=== PATIENT | female | born 1950 | race Caucasian/White ===

== ENCOUNTER 2017-02-16 18:29 | Inpatient (IN) | payer MEDICARE, MEDICAID ==
[2017-02-16 18:32] VITALS: BMI 26.8
[2017-02-16] MEDS ORDERED: Sodium Chloride 0.9% 1,000 ML IV ONE (19:24)
[2017-02-16 19:48] LABS: BASO # 0.1 K/uL (0.0-0.2); BASO % 0.5 % (0.0-2.0); EOS # 0.1 K/uL (0.0-0.7); HEMATOCRIT 33.1 % (34.0-47.0); LYMPH # 1.3 K/uL (1.0-4.3); LYMPH % 11.5 % (20.0-40.0); MEAN CELL VOLUME 84.2 fL (81.0-99.0); MEAN CORPUSCULAR HEMOGLOBIN 27.8 pg (27.0-31.0); MEAN PLATELET VOLUME 7.6 fL (7.2-11.7); MONO % 8.8 % (0.0-10.0); RED CELL DISTRIBUTION WIDTH 18.4 % (11.5-14.5)
[2017-02-16 19:57] LABS: CHLORIDE 90 mmol/L (98-107)
[2017-02-16 19:58] LABS: POTASSIUM 4.1 mmol/L (3.6-5.2); SODIUM 130 mmol/L (132-148)
[2017-02-16 19:59] LABS: PHOSPHOROUS 3.2 mg/dL (2.5-4.5)
[2017-02-16 20:00] LABS: ALB/GLOB RATIO 0.9 (1.0-2.1); ALCOHOL SERUM < 10 mg/dl (0-10); ALKALINE PHOSPHATASE 104 U/L (38-126); ALT/SGPT 13 U/L (9-52); AST/SGOT 17 U/L (14-36); BILIRUBIN,TOTAL 0.6 mg/dL (0.2-1.3); BLOOD UREA NITROGEN 17 mg/dL (7-17); CALCIUM 10.3 mg/dl (8.6-10.4); CARBON DIOXIDE 24 mmol/L (22-30); GFR AFRICAN-AMERICAN > 60; GLUCOSE,RANDOM 230 mg/dL (65-105); TOTAL PROTEIN 7.6 g/dL (6.3-8.3)
[2017-02-16 20:01] LABS: MAGNESIUM 1.1 mg/dL (1.6-2.3)
[2017-02-16 21:23] LABS: RBC URINE 27 /hpf (0-3); URINE BACTERIA MANY (<OCC); URINE BILIRUBIN NEGATIVE (NEGATIVE); URINE BLOOD 2+ (NEGATIVE); URINE COLOR Yellow (YELLOW); URINE GLUCOSE (UA) 3+ mg/dL (Normal); URINE KETONE NEGATIVE (NEGATIVE); URINE LEUKOCYTE ESTERASE 2+ Leu/uL (Negative); URINE PROTEIN 1+ mg/dL (NEGATIVE); URINE UROBILINOGEN NORMAL mg/dL (0.2-1.0); WBC URINE 165 /hpf (0-5)
[2017-02-16] MEDS ORDERED: Ciprofloxacin 400mg/200ml D5W 200 ML IVPB STA (22:13)
--- NOTE | 2017-02-16 22:31 | C.PDOC ---
Time Seen by Provider: 02/16/17 19:15 Chief Complaint (Nursing): Altered Mental Status History Per: Patient, EMS History/Exam Limitations: Clinical Condition Onset Of Symptoms: Cannot Confirm Onset Current Symptoms Are (Timing): Worse Usual Baseline: Unknown Exacerbating Factor(s): Unknown Use Of Anticoag/Antiplatelets: Unknown Decreased Ability To: Stand, Walk Severity: Moderate Additional History Per: Family, Prior Records Associated Symptoms: Disoriented, Confused, Falling, Weakness Past Medical History Reviewed: Historical Data, Nursing Documentation, Vital Signs Vital Signs: Last Vital Signs Temp 99.1 F 02/16/17 22:16 Pulse 109 H 02/16/17 22:16 Resp 16 02/16/17 22:16 BP 172/87 H 02/16/17 22:16 Pulse Ox 96 02/16/17 22:16 - Medical History PMH: Arthritis, Diabetes (IDDM), HTN, Hypercholesterolemia, Malignancy (?), Chronic Kidney Disease Other PMH: Sarcoidosis? Family History: States: Unknown Family Hx - Social History Hx Alcohol Use: No - Immunization History Hx Tetanus Toxoid Vaccination: No Hx Influenza Vaccination: No Hx Pneumococcal Vaccination: No Review Of Systems Review Of Systems: ROS cannot be obtained secondary to pt's inabilty to answer questions. Physical Exam - Physical Exam Appears: Confused, Chronically Ill Skin: Warm, Dry Head: Atraumatic Eye(s): bilateral: PERRL, EOMI Oral Mucosa: Dry Neck: Normal ROM, No Midline Cervical Tenderness, No Step Off Deformity, Supple Cardiovascular: Rhythm Regular Respiratory: Normal Breath Sounds, No Accessory Muscle Use Gastrointestinal/Abdominal: Soft, No Tenderness Extremity: Normal ROM, No Deformity Neurological/Psych: No Normal Cognition, Inappropriate Response To Command, Other (No focal neurological deficit) Disoriented To: Place, Time Gait: Unable To Assess ED Course And Treatment - Laboratory Results Result Diagrams: 02/16/17 19:39 02/16/17 19:39 Lab Interpretation: Abnormal Interpretation Of Abnormal: UTI. Hypomagnesemia. Mild anemia. ECG: Interpreted By Me, Viewed By Me ECG Rhythm: Sinus Tachycardia, Nonspecific Changes Rate From EC O2 Sat by Pulse Oximetry: 96 Pulse Ox Interpretation: Normal - Radiology CXR: Interpreted by Me, Viewed By Me CXR Interpretation: Yes: No Acute Disease - CT Scan/US CT head Other Rad Studies (CT/US): Read By Radiologist, Radiology Report Reviewed CT/US Interpretation: No acute intracranial findings. Lytic calvarial lesions. Progress - Interventions Interventions:: Observation, Intravenous fluid - Medications Administered Intravenous: Other (Mg) - Data Reviewed Data Reviewed: Lab, Diagnostic imaging, EKG, Old records - Patient Status Patient status: Partially improved - Continuity of Care Discussed patient case with:: Patient, Family-HIPPA compliant, ED Nurse, On- call PMD-pt unassigned - Patient Plan Patient Plan: Admission Disposition Discussed With : Cammy Olvera Comment: She accepted pt on her service and gave admitting orders to the nurse. Doctor Will See Patient In The: Hospital Counseled Patient/Family Regarding: Studies Performed, Diagnosis - Disposition Disposition: HOSPITALIZED Disposition Time: 22:34 Condition: FAIR - Clinical Impression Clinical Impression: Mental status, decreased, Recurrent falls, Urinary tract infection
[2017-02-16] MEDS ORDERED: Ciprofloxacin 400mg/200ml D5W 200 ML IVPB ONE (22:37)
[2017-02-17] MEDS ORDERED: Oxycodone/Acetaminophen 5/325 mg Tab ONE (00:20)
[2017-02-17] MEDS: Oxycodone/Acetaminophen 5/325 mg Tab PO PRN (00:23)
--- NOTE | 2017-02-17 08:37 | RAD ---
PROCEDURE: CHEST RADIOGRAPH, 1 VIEW HISTORY: AMS COMPARISON: Comparison is made to the previous study dated 05/27/2016 FINDINGS: LUNGS: No evidence of new infiltrate or consolidation in the lungs PLEURA: No pneumothorax or pleural fluid seen. CARDIOVASCULAR: Normal. OSSEOUS STRUCTURES: No significant abnormalities. VISUALIZED UPPER ABDOMEN: Normal. OTHER FINDINGS: None. IMPRESSION: No active disease.
--- NOTE | 2017-02-17 08:51 | CT ---
PROCEDURE: CT HEAD WITHOUT CONTRAST. HISTORY: AMS COMPARISON: Comparison is made to the previous study 02/14/2016. TECHNIQUE: Axial computed tomography images were obtained through the head/brain without intravenous contrast. This CT exam was performed using one or more of the following dose reduction techniques: Automated exposure control, adjustment of the mA and/or kv according to patient size, and/or use of iterative reconstruction technique. Radiation dose: Total exam DLP = 852.6 mGy-cm. FINDINGS: HEMORRHAGE: No intracranial hemorrhage. BRAIN: No mass effect or edema. Moderate white matter changes are again seen suggestive of chronic microvascular ischemic disease. VENTRICLES: Unremarkable. No hydrocephalus. CALVARIUM: Again seen are multiple lytic bony lesion in the skull suspicious for osseous metastasis. PARANASAL SINUSES: Unremarkable as visualized. No significant inflammatory changes. MASTOID AIR CELLS: Unremarkable as visualized. No inflammatory changes. OTHER FINDINGS: None. IMPRESSION: No evidence of acute intracranial hemorrhage intracranial collection mass effect or midline shift. Moderate white matter chronic microvascular white matter ischemic disease. Multiple lytic lesions in the skull suggestive of osseous metastasis or multiple myeloma. Preliminary report was submitted by [facility].
[2017-02-17] MEDS: Pantoprazole 40 mg EC Tab PO SCH (09:57)
[2017-02-17] MEDS: MethylPREDNISolone 40 mg Vial IVP SCH (09:57)
[2017-02-17] MEDS ORDERED: METFORMIN PO SCH (10:00)
--- NOTE | 2017-02-17 11:11 | CP.PCM.HP ---
History of Present Illness - History of Present Illness History of Present Illness: pt brought to er for was found in the floore confused weekehtn Present on Admission - Present on Admission Any Indicators Present on Admission: No Review of Systems - Review of Systems Systems not reviewed;Unavailable: Acuity of Condition - Constitutional Constitutional: Anorexia, Weight Loss, Weakness - EENT Eyes: As Per HPI Ears: As Per HPI Nose/Mouth/Throat: As Per HPI - Breasts Breasts: As Per HPI - Cardiovascular Cardiovascular: As Per HPI - Respiratory Respiratory: As Per HPI - Gastrointestinal Gastrointestinal: As Per HPI - Genitourinary Genitourinary: As Per HPI - Reproductive: Female Reproductive:Female: As Per HPI - Menstruation Menstruation: Post Menopausal - Musculoskeletal Musculoskeletal: Abnormal Gait - Integumentary Integumentary: As Per HPI - Neurological Neurological: Confusion, Memory Loss, Weakness - Psychiatric Psychiatric: Behavioral Changes - Endocrine Endocrine: Polyuria Past Patient History - Past Medical History & Family History Past Medical History?: Yes - Past Social History Smoking Status: Never Smoked - CARDIAC Hx Hypercholesterolemia: Yes Hx Hypertension: Yes - PULMONARY Hx Respiratory Disorders: Yes (lung nodules) Other/Comment: sarcoidosis - NEUROLOGICAL Hx Neurological Disorder: Yes Hx Dizziness: Yes Other/Comment: Brain Cancer, not confirmed - HEENT Hx HEENT Problems: No - RENAL Hx Chronic Kidney Disease: Yes - ENDOCRINE/METABOLIC Hx Endocrine Disorders: Yes Hx Diabetes Mellitus Type 2: Yes - HEMATOLOGICAL/ONCOLOGICAL Hx Blood Disorders: Yes Hx Cancer: Yes Hx Metastesis: Yes - INTEGUMENTARY Hx Dermatological Problems: No - MUSCULOSKELETAL/RHEUMATOLOGICAL Hx Musculoskeletal Disorders: Yes Hx Falls: Yes (AT HOME) - GASTROINTESTINAL Hx Gastrointestinal Disorders: Yes Hx Gastroesophageal Reflux: Yes - GENITOURINARY/GYNECOLOGICAL Hx Genitourinary Disorders: No - PSYCHIATRIC Hx Psychophysiologic Disorder: No Hx Substance Use: No - SURGICAL HISTORY Hx Surgeries: Yes Hx Hysterectomy: Yes (bilat oophorectomy) - ANESTHESIA Hx Anesthesia: Yes Hx Anesthesia Reactions: Yes (palpitations) Hx Malignant Hyperthermia: No Has any member of the family had a problem w/ anesthesia?: No Meds Allergies/Adverse Reactions: Allergies Allergy/AdvReac Type Severity Reaction Status Date / Time No Known Allergies Allergy Verified 02/16/17 18:31 Physical Exam - Constitutional Appears: Non-toxic - Head Exam Head Exam: NORMAL INSPECTION - Eye Exam Eye Exam: Normal appearance Pupil Exam: NORMAL ACCOMODATION - ENT Exam ENT Exam: Mucous Membranes Moist - Neck Exam Neck exam: Positive for: Full Rom - Respiratory Exam Respiratory Exam: NORMAL BREATHING PATTERN - Cardiovascular Exam Cardiovascular Exam: REGULAR RHYTHM - GI/Abdominal Exam GI & Abdominal Exam: Normal Bowel Sounds - Rectal Exam Rectal Exam: NORMAL INSPECTION - Exam Exam: NORMAL INSPECTION - Extremities Exam Extremities exam: Positive for: normal inspection - Back Exam Back exam: NORMAL INSPECTION - Neurological Exam Neurological exam: Abnormal Gait, Alert - Psychiatric Exam Psychiatric exam: Normal Affect - Skin Skin Exam: Normal Color Results - Vital Signs Recent Vital Signs: Last Vital Signs Temp 97.9 F 02/17/17 08:22 Pulse 111 H 02/17/17 08:22 Resp 20 02/17/17 08:22 BP 156/94 H 02/17/17 08:22 Pulse Ox 96 02/17/17 08:22 - Labs Result Diagrams: 02/16/17 19:39 02/16/17 19:39 Assessment & Plan - Assessment and Plan (Free Text) Assessment: ac altered mental status recurent falls generalised weekbess dm Plan: admit pt and as oer orders - Date & Time Date: 02/17/17 Time: 11:14
--- NOTE | 2017-02-17 14:14 | CP.PCM.CON ---
History of Present Illness - History of Present Illness History of Present Illness: Mrs. Parrish Amador is a 66-year-old woman with a past medical history significant for diabetes, dyslipidemia, vertigo and neuropathy who has been developing a progressive dementia over the last year. The patient's son provides the history since the patient is confused and unable to maintain a fully logical conversation. According to her son, the patient has been losing a significant amount of weight, has had decreased appetite and is becoming progressively more demented, confused and unable to care for herself. The majority of the decline has occurred over the past year. She has apparently had a work-up at an outside facility for this before, where she was admitted for two months without a clear diagnosis. Review of Systems - Review of Systems Systems not reviewed;Unavailable: Dementia, Altered Mental Status - Constitutional Constitutional: Frequent Falls, Lethargy, Weight Loss, Weakness - EENT Eyes: As Per HPI, Other. absent: Blind Spots, Blurred Vision, Change in Vision , Decreased Night Vision, Diplopia, Discharge, Dry Eye, Exophthalmos, Floaters, Irritation, Itchy Eyes, Loss of Peripheral Vision, Pain, Photophobia, Requires Corrective Lenses, Sees Flashes, Spots in Vision, Tunnel Vision, Other Visual Disturbances, Loss of Vision Ears: As Per HPI. absent: Decreased Hearing, Ear Discharge, Ear Pain, Tinnitus , Abnormal Hearing, Disequilibrium, Dizziness, Other Nose/Mouth/Throat: As Per HPI, Other. absent: Epistaxis, Nasal Congestion, Nasal Discharge, Nasal Obstruction, Nasal Trauma, Nose Pain, Post Nasal Drip, Sinus Pain, Sinus Pressure, Bleeding Gums, Change in Voice, Dental Pain, Dry Mouth, Dysphagia, Halitosis, Hoarsness, Lip Swelling, Mouth Lesions, Mouth Pain , Odynophagia, Sore Throat, Throat Swelling, Tongue Swelling, Facial Pain, Neck Pain, Neck Mass - Cardiovascular Cardiovascular: absent: Acrocyanosis, Chest Pain, Chest Pain at Rest, Chest Pain with Activity, Claudication, Diaphoresis, Dyspnea, Dyspnea on Exertion, Edema, Irregular Heart Rhythm, Pain Radiating to Arm/Neck/Jaw, Leg Edema, Leg Ulcers, Lightheadedness, Orthopnea, Palpitations, Paroxysmal Nocturnal Dyspnea, Pedal Edema, Radiating Pain, Rapid Heart Rate, Slow Heart Rate, Syncope - Respiratory Respiratory: Other. absent: Cough, Dyspnea, Hemoptysis, Dyspnea on Exertion, Wheezing, Snoring, Stridor, Pain on Inspiration, Chest Congestion, Excessive Mucous Production, Change in Mucous Color, Pain with Coughing - Neurological Neurological: As Per HPI Past Patient History - Past Medical History & Family History Past Medical History?: Yes - Past Social History Smoking Status: Never Smoked - CARDIAC Hx Hypercholesterolemia: Yes Hx Hypertension: Yes - PULMONARY Hx Respiratory Disorders: Yes (lung nodules) Other/Comment: sarcoidosis - NEUROLOGICAL Hx Neurological Disorder: Yes Hx Dizziness: Yes Other/Comment: Brain Cancer, not confirmed - HEENT Hx HEENT Problems: No - RENAL Hx Chronic Kidney Disease: Yes - ENDOCRINE/METABOLIC Hx Endocrine Disorders: Yes Hx Diabetes Mellitus Type 2: Yes - HEMATOLOGICAL/ONCOLOGICAL Hx Blood Disorders: Yes Hx Cancer: Yes Hx Metastesis: Yes - INTEGUMENTARY Hx Dermatological Problems: No - MUSCULOSKELETAL/RHEUMATOLOGICAL Hx Musculoskeletal Disorders: Yes Hx Falls: Yes (AT HOME) - GASTROINTESTINAL Hx Gastrointestinal Disorders: Yes Hx Gastroesophageal Reflux: Yes - GENITOURINARY/GYNECOLOGICAL Hx Genitourinary Disorders: No - PSYCHIATRIC Hx Psychophysiologic Disorder: No Hx Substance Use: No - SURGICAL HISTORY Hx Surgeries: Yes Hx Hysterectomy: Yes (bilat oophorectomy) - ANESTHESIA Hx Anesthesia: Yes Hx Anesthesia Reactions: Yes (palpitations) Hx Malignant Hyperthermia: No Has any member of the family had a problem w/ anesthesia?: No Meds Allergies/Adverse Reactions: Allergies Allergy/AdvReac Type Severity Reaction Status Date / Time No Known Allergies Allergy Verified 02/16/17 18:31 - Medications Medications: Current Medications Duloxetine HCl (Cymbalta) 60 mg PO DAILY [facility] Last Admin: 02/17/17 10:23 Dose: 60 mg Enoxaparin Sodium (Lovenox) 40 mg SC DAILY [facility] Gabapentin (Neurontin) 400 mg PO TID [facility] Last Admin: 02/17/17 10:21 Dose: 400 mg Home Med (Alendronate [Fosamax]) 70 mg PO QWK [facility] Home Med (Metformin [Glucophage]) 1 tab PO BID [facility] Last Admin: 02/17/17 11:57 Dose: Not Given Ibuprofen (Motrin Tab) 1 mg PO Q6H PRN PRN Reason: Pain, moderate (4-7) Losartan Potassium (Cozaar) 100 mg PO DAILY [facility] Last Admin: 02/17/17 09:57 Dose: 100 mg Meclizine HCl (Antivert) 25 mg PO TID PRN PRN Reason: Dizziness Methylprednisolone (Solu-Medrol) 40 mg IVP DAILY [facility] Last Admin: 02/17/17 09:57 Dose: 40 mg Oxycodone/Acetaminophen (Percocet 5/325 Mg Tab) 1 tab PO Q4 PRN PRN Reason: Pain, moderate (4-7) Stop: 02/19/17 23:44 Last Admin: 02/17/17 00:23 Dose: 1 tab Pantoprazole Sodium (Protonix Ec Tab) 40 mg PO DAILY [facility] Last Admin: 02/17/17 09:57 Dose: 40 mg Prednisone (Prednisone Tab) 1 mg PO QOD6 [facility] Rosuvastatin Calcium (Crestor) 10 mg PO HS [facility] Sitagliptin Phosphate (Januvia) 100 mg PO DAILY [facility] Last Admin: 02/17/17 10:10 Dose: 100 mg Sucralfate (Carafate Tab) 1 gm PO BID [facility] Last Admin: 02/17/17 09:57 Dose: 1 gm Physical Exam - Constitutional Appears: Well, Non-toxic, No Acute Distress, Confused - Head Exam Head Exam: ATRAUMATIC, NORMAL INSPECTION, NORMOCEPHALIC - Eye Exam Eye Exam: EOMI, Normal appearance, PERRL - Neck Exam Neck exam: Positive for: Normal Inspection - Cardiovascular Exam Cardiovascular Exam: REGULAR RHYTHM, +S1, +S2 - Neurological Exam Neurological exam: Alert, CN II-XII Intact, Reflexes Normal Additional comments: Confused about date, time and place. Knows she is in a hospital, but does not know which city. She could not recall any of 3 objects and could not complete subtraction task. She moves all her extremities normally to command. No sensory deficits noted. Gait was deferred due to difficulty with communication. Results - Vital Signs Recent Vital Signs: Last Vital Signs Temp 97.9 F 02/17/17 08:22 Pulse 111 H 02/17/17 08:22 Resp 20 02/17/17 08:22 BP 156/94 H 02/17/17 08:22 Pulse Ox 96 02/17/17 08:22 - Labs Result Diagrams: 02/16/17 19:39 02/16/17 19:39 Labs: Laboratory Results - last 24 hr 02/17/17 12:21 POC Glucose (mg/dL) 381 H - Imaging and Cardiology CT scan - head Status: Image reviewed by me, Report reviewed by me (Chronic diffuse small vessel disease. Multiple lytic lesions in the july areas suggestive of metastatic disease, or multiple myeloma.) Assessment & Plan (1) Mental status, decreased Assessment and Plan: Based on the history, labs and imaging, the patient likely has an underlying malignancy causing either a paraneoplastic encephalopathy, or direct frontal lobe metastatic disease. This should be further evaluated with an MRI of the brain with and without contrast. Furthermore, records from the outside facility should be obtain to determine of a paraneoplastic panel was drawn so as to not repeat labs that have already been done. If we cannot obtain outside records, then we can send for the antibodies in serum and possibly CSF. Other factors contributing to the patient's altered mental status could be her current UTI, hyponatremia and other electrolyte abnormalities. 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 Thank you very much for this interesting consult. Status: Chronic Priority: High
[2017-02-17] MEDS: Enoxaparin 40 mg Syringe SC SCH (14:57)
[2017-02-17] MEDS: (Novolin R) Insulin Human Regular 100 units/ml vial SC SCH (21:35)
[2017-02-18] MEDS: (Novolin R) Insulin Human Regular 100 units/ml vial SC SCH ×4 (08:52→22:05)
[2017-02-18] MEDS: Oxycodone/Acetaminophen 5/325 mg Tab PO PRN (11:23)
[2017-02-18] MEDS: Enoxaparin 40 mg Syringe SC SCH (11:26)
[2017-02-18] MEDS: MethylPREDNISolone 40 mg Vial IVP SCH (11:26)
[2017-02-18] MEDS: Pantoprazole 40 mg EC Tab PO SCH (11:27)
[2017-02-18] MEDS: Ciprofloxacin 400mg/200ml D5W 200 ML IVPB SCH ×2 (11:36→21:07)
--- NOTE | 2017-02-18 16:32 | CP.PCM.PN ---
Subjective - Date & Time of Evaluation Date of Evaluation: 02/18/17 Time of Evaluation: 11:30 - Subjective Subjective: Mrs. Parrish Amador was seen and examined by me today at bedside. Her daughter was present and assisted by provided more history. According to the daughter, the patient has been diagnosed with sarcoidosis after biopsies of her lung nodules were performed. Furthermore, it was suspected based on the appearance of the july lesions that she may have multiple myeloma. However, bone marrow biopsy did not show this. She was started on steroids, but due to her uncontrolled diabetes, she is on only minimal doses. Recently, she was seen by a neurologist for declining mental function and confusion. 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 I reviewed the MRI and noticed that there are many areas of contrast enhancement in the calvarium and possibly anterior to the left temporal lobe region. I did not see any significant intraparenchymal contrast enhancement, but there is quite a bit of T2 hyperintensity implying chronic ischemic changes. There were no acute events overnight and the patient has not had any new complaints. The reason she was brought in to the hospital and not continued with outpatient neurology follow-up (she had an appointment tomorrow), was because she is not unable to walk normally. Objective - Vital Signs/Intake and Output Vital Signs (last 24 hours): Temp Pulse Resp BP Pulse Ox 97.5 F L 110 H 20 120/76 97 02/18/17 08:00 02/18/17 12:22 02/18/17 08:00 02/18/17 08:00 02/18/17 12:22 Intake and Output: 02/18/17 02/18/17 06:59 18:59 Intake Total 250 550 Balance 250 550 - Medications Medications: Current Medications Duloxetine HCl (Cymbalta) 60 mg PO DAILY [facility] Last Admin: 02/18/17 11:28 Dose: 60 mg Enoxaparin Sodium (Lovenox) 40 mg SC DAILY [facility] Last Admin: 02/18/17 11:26 Dose: 40 mg Gabapentin (Neurontin) 400 mg PO TID [facility] Last Admin: 02/18/17 14:53 Dose: 400 mg Home Med (Alendronate [Fosamax]) 70 mg PO QWK [facility] Ciprofloxacin (Cipro 400mg/200ml Dsw) 200 mls @ 133 mls/hr IVPB Q12 [facility] Last Admin: 02/18/17 11:36 Dose: 133 mls/hr Ibuprofen (Motrin Tab) 600 mg PO Q6H PRN PRN Reason: Pain, moderate (4-7) Insulin Human Regular (Novolin R) 0 unit SC ACHS YUE PRN Reason: Protocol Last Admin: 02/18/17 12:34 Dose: 8 unit Losartan Potassium (Cozaar) 100 mg PO DAILY [facility] Last Admin: 02/18/17 11:27 Dose: 100 mg Metformin HCl (Glucophage) 500 mg PO BID [facility] Last Admin: 02/18/17 11:28 Dose: 500 mg Methylprednisolone (Solu-Medrol) 40 mg IVP DAILY [facility] Last Admin: 02/18/17 11:26 Dose: 40 mg Oxycodone/Acetaminophen (Percocet 5/325 Mg Tab) 1 tab PO Q4 PRN PRN Reason: Pain, moderate (4-7) Stop: 02/19/17 23:44 Last Admin: 02/18/17 11:23 Dose: 1 tab Pantoprazole Sodium (Protonix Ec Tab) 40 mg PO DAILY [facility] Last Admin: 02/18/17 11:27 Dose: 40 mg Prednisone (Prednisone Tab) 5 mg PO QOD6 [facility] Rosuvastatin Calcium (Crestor) 10 mg PO HS [facility] Last Admin: 02/17/17 21:34 Dose: 10 mg Sitagliptin Phosphate (Januvia) 100 mg PO DAILY [facility] Last Admin: 02/18/17 11:26 Dose: 100 mg Sucralfate (Carafate Tab) 1 gm PO BID [facility] Last Admin: 02/18/17 11:27 Dose: 1 gm - Labs Labs: PT 11.5 SECONDS (9.7-12.2) 02/16/17 19:39 INR 1.0 02/16/17 19:39 APTT 35 SECONDS (21-34) H 02/16/17 19:39 - Constitutional Appears: Well - Eye Exam Eye Exam: EOMI, Normal appearance, PERRL Pupil Exam: NORMAL ACCOMODATION, PERRL - Respiratory Exam Respiratory Exam: Clear to Ausculation Bilateral, NORMAL BREATHING PATTERN - Cardiovascular Exam Cardiovascular Exam: REGULAR RHYTHM, +S1, +S2. absent: Murmur - Neurological Exam Neurological Exam: Abnormal Gait, Altered, CN II-XII Intact Neuro motor strength exam: Left Upper Extremity: 4, Right Upper Extremity: 4, Left Lower Extremity: 4, Right Lower Extremity: 4 Additional comments: Neurologically unchanged compared with yesterday's examination. 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 Neurosarcoidosis has no known cure. Spontaneous remission has been observed, but long-term therapy often is required. Treatment alleviates symptoms that are severe or progressive. Immunosuppression is the principal method of controlling the disease, and corticosteroids are the cornerstone of therapy. However, this patient's history of uncontrolled diabetes makes it difficult to give her high dose steroids. In some patients, low dose radiation may be of benefit. A radiation geoscience specialist is recommended in this case. Status: Chronic
--- NOTE | 2017-02-18 17:39 | CP.PCM.PN ---
Subjective - Date & Time of Evaluation Date of Evaluation: 02/18/17 Time of Evaluation: 17:36 - Subjective Subjective: c/o of abd [place] weeke unable to walk lost a lot of wt Objective - Vital Signs/Intake and Output Vital Signs (last 24 hours): Temp Pulse Resp BP Pulse Ox 97.4 F L 92 H 20 144/88 97 02/18/17 14:00 02/18/17 14:00 02/18/17 14:00 02/18/17 14:00 02/18/17 14:00 Intake and Output: 02/18/17 02/18/17 06:59 18:59 Intake Total 250 550 Balance 250 550 - Medications Medications: Current Medications Duloxetine HCl (Cymbalta) [address] [facility] Last Admin: 02/18/17 11:28 Dose: 60 mg Enoxaparin Sodium (Lovenox) [address] [facility] Last Admin: 02/18/17 11:26 Dose: 40 mg Gabapentin (Neurontin) [address] [facility] Last Admin: 02/18/17 14:53 Dose: 400 mg Glipizide (Glucotrol) 2.[address] [facility] Home Med (Alendronate [Fosamax]) [address] [facility] Ciprofloxacin (Cipro 400mg/200ml Dsw) 200 mls @ 133 mls/hr IVPB Q12 [facility] Last Admin: 02/18/17 11:36 Dose: 133 mls/hr Ibuprofen (Motrin Tab) 600 mg PO Q6H PRN PRN Reason: Pain, moderate (4-7) Insulin Human Regular (Novolin R) [address] [facility] PRN Reason: Protocol Last Admin: 02/18/17 12:34 Dose: 8 unit Losartan Potassium (Cozaar) [address] [facility] Last Admin: 02/18/17 11:27 Dose: 100 mg Methylprednisolone (Solu-Medrol) [address] [facility] Last Admin: 02/18/17 11:26 Dose: 40 mg Oxycodone/Acetaminophen (Percocet 5/325 Mg Tab) 1 tab PO Q4 PRN PRN Reason: Pain, moderate (4-7) Stop: 02/19/17 23:44 Last Admin: 02/18/17 11:23 Dose: 1 tab Pantoprazole Sodium (Protonix Ec Tab) [address] [facility] Last Admin: 02/18/17 11:27 Dose: 40 mg Prednisone (Prednisone Tab) [address] [facility] Rosuvastatin Calcium (Crestor) [address] [facility] Last Admin: 02/17/17 21:34 Dose: 10 mg Sitagliptin Phosphate (Januvia) [address] [facility] Last Admin: 02/18/17 11:26 Dose: 100 mg Sucralfate (Carafate Tab) [address] [facility] Last Admin: 02/18/17 11:27 Dose: 1 gm - Labs Labs: PT 11.5 SECONDS (9.7-12.2) 02/16/17 19:39 INR 1.0 02/16/17 19:39 APTT 35 SECONDS (21-34) H 02/16/17 19:39 - Constitutional Appears: Non-toxic - Head Exam Head Exam: NORMAL INSPECTION - Eye Exam Eye Exam: Normal appearance Pupil Exam: NORMAL ACCOMODATION - ENT Exam ENT Exam: Mucous Membranes Moist - Respiratory Exam Respiratory Exam: NORMAL BREATHING PATTERN - GI/Abdominal Exam GI & Abdominal Exam: Tenderness - Rectal Exam Rectal Exam: NORMAL INSPECTION - Extremities Exam Extremities Exam: Normal Inspection - Back Exam Back Exam: NORMAL INSPECTION - Neurological Exam Neurological Exam: Abnormal Gait, Alert - Psychiatric Exam Psychiatric exam: Normal Affect - Skin Skin Exam: Normal Color Assessment and Plan - Assessment and Plan (Free Text) Assessment: weekness abd pain wt loss aneamia recurent falls Plan: as per orders
[2017-02-18] MEDS: GlipiZIDE 2.5 mg Tab PO SCH (18:07)
[2017-02-19 07:24] LABS: CHLORIDE 92 mmol/L (98-107); POTASSIUM 4.1 mmol/L (3.6-5.2); SODIUM 133 mmol/L (132-148)
[2017-02-19 07:25] LABS: BASO % 0.1 % (0.0-2.0); EOS % 0.1 % (0.0-4.0); HEMATOCRIT 32.4 % (34.0-47.0); LYMPH # 1.3 K/uL (1.0-4.3); MEAN CELL VOLUME 84.9 fL (81.0-99.0); MEAN CORPUSCULAR HEMOGLOBIN 28.4 pg (27.0-31.0); MEAN CORPUSCULAR HGB CONC 33.4 g/dL (33.0-37.0); MEAN PLATELET VOLUME 7.8 fL (7.2-11.7); MONO # 0.6 K/uL (0.0-0.8); RED CELL DISTRIBUTION WIDTH 17.6 % (11.5-14.5); WHITE BLOOD COUNT 10.8 K/uL (4.8-10.8)
[2017-02-19 07:27] LABS: BLOOD UREA NITROGEN 21 mg/dL (7-17); CARBON DIOXIDE 24 mmol/L (22-30); GFR AFRICAN-AMERICAN > 60; GLUCOSE,RANDOM 206 mg/dL (65-105)
[2017-02-19 07:28] LABS: CALCIUM 10.3 mg/dl (8.6-10.4)
[2017-02-19] MEDS: (Novolin R) Insulin Human Regular 100 units/ml vial SC SCH ×4 (09:01→22:26)
--- NOTE | 2017-02-19 10:20 | CP.PCM.PN ---
Subjective - Date & Time of Evaluation Date of Evaluation: 02/19/17 Time of Evaluation: 10:20 - Subjective Subjective: weeke Objective - Vital Signs/Intake and Output Vital Signs (last 24 hours): Temp Pulse Resp BP Pulse Ox 98.5 F 102 H 20 155/96 H 96 02/19/17 08:00 02/19/17 08:00 02/19/17 08:00 02/19/17 08:00 02/19/17 08:00 Intake and Output: 02/19/17 02/19/17 06:59 18:59 Intake Total 850 Balance 850 - Medications Medications: Current Medications Duloxetine HCl (Cymbalta) 60 mg PO DAILY [facility] Last Admin: 02/18/17 11:28 Dose: 60 mg Gabapentin (Neurontin) 400 mg PO TID [facility] Last Admin: 02/18/17 18:09 Dose: 400 mg Glipizide (Glucotrol) 2.5 mg PO BID [facility] Last Admin: 02/18/17 18:07 Dose: 2.5 mg Home Med (Alendronate [Fosamax]) 70 mg PO QWK [facility] Ciprofloxacin (Cipro 400mg/200ml Dsw) 200 mls @ 133 mls/hr IVPB Q12 [facility] Last Admin: 02/18/17 21:07 Dose: 133 mls/hr Ibuprofen (Motrin Tab) 600 mg PO Q6H PRN PRN Reason: Pain, moderate (4-7) Insulin Human Regular (Novolin R) 0 unit SC ACHS [facility] PRN Reason: Protocol Last Admin: 02/19/17 09:01 Dose: 3 unit Losartan Potassium (Cozaar) 100 mg PO DAILY [facility] Last Admin: 02/18/17 11:27 Dose: 100 mg Methylprednisolone (Solu-Medrol) 40 mg IVP DAILY [facility] Last Admin: 02/18/17 11:26 Dose: 40 mg Oxycodone/Acetaminophen (Percocet 5/325 Mg Tab) 1 tab PO Q4 PRN PRN Reason: Pain, moderate (4-7) Stop: 02/19/17 23:44 Last Admin: 02/18/17 11:23 Dose: 1 tab Pantoprazole Sodium (Protonix Ec Tab) 40 mg PO DAILY [facility] Last Admin: 02/18/17 11:27 Dose: 40 mg Prednisone (Prednisone Tab) 5 mg PO QOD6 [facility] Last Admin: 02/18/17 18:08 Dose: 5 mg Rosuvastatin Calcium (Crestor) 10 mg PO HS [facility] Last Admin: 02/18/17 21:07 Dose: 10 mg Sitagliptin Phosphate (Januvia) 100 mg PO DAILY [facility] Last Admin: 02/18/17 11:26 Dose: 100 mg Sucralfate (Carafate Tab) 1 gm PO BID [facility] Last Admin: 02/18/17 18:06 Dose: 1 gm - Labs Labs: 02/19/17 07:05 02/19/17 07:05 PT 11.5 SECONDS (9.7-12.2) 02/16/17 19:39 INR 1.0 02/16/17 19:39 APTT 35 SECONDS (21-34) H 02/16/17 19:39 - Constitutional Appears: Non-toxic - Head Exam Head Exam: NORMAL INSPECTION - Eye Exam Eye Exam: Normal appearance Pupil Exam: NORMAL ACCOMODATION - ENT Exam ENT Exam: Normal Exam - Neck Exam Neck Exam: Full ROM - Respiratory Exam Respiratory Exam: Decreased Breath Sounds, Rales - Cardiovascular Exam Cardiovascular Exam: REGULAR RHYTHM - GI/Abdominal Exam GI & Abdominal Exam: Normal Bowel Sounds - Rectal Exam Rectal Exam: NORMAL INSPECTION - Exam Exam: NORMAL INSPECTION - Extremities Exam Extremities Exam: Normal Inspection - Back Exam Back Exam: NORMAL INSPECTION - Neurological Exam Neurological Exam: Awake - Psychiatric Exam Psychiatric exam: Normal Affect - Skin Skin Exam: Normal Color Assessment and Plan - Assessment and Plan (Free Text) Assessment: s/p ecoli sepese uti ca with met generalised weekness Plan: d/c to [facility] before
[2017-02-19] MEDS: Pantoprazole 40 mg EC Tab PO SCH (10:58)
[2017-02-19] MEDS: GlipiZIDE 2.5 mg Tab PO SCH ×2 (10:58→17:44)
[2017-02-19] MEDS: Ciprofloxacin 400mg/200ml D5W 200 ML IVPB SCH ×2 (10:59→21:40)
[2017-02-19] MEDS: MethylPREDNISolone 40 mg Vial IVP SCH (10:59)
[2017-02-19] MEDS: Enoxaparin 40 mg Syringe SC SCH (11:00)
[2017-02-19] MEDS ORDERED: Iohexol 240 (50 ml) PO ONE (12:45)
[2017-02-19 14:51] LABS: CARCINOEMBRYONIC ANTIGEN 3.5 ng/mL (0-3.0)
[2017-02-19 16:06] LABS: FREE T4 1.35 ng/dL (0.78-2.19)
[2017-02-19 16:20] LABS: THYROID STIMULATING HORMONE 1.39 mIU/L (0.46-4.68)
--- NOTE | 2017-02-19 17:29 | CT ---
PROCEDURE: CT Abdomen and Pelvis without IV contrast. HISTORY: loss of wt unable to walk uti COMPARISON: CT of the chest, abdomen, and pelvis with IV contrast performed 02/16/16 TECHNIQUE: Contiguous axial images of the abdomen and pelvis. Oral contrast was administered. No IV contrast given. Coronal and Sagittal reformats generated and reviewed. This CT exam was performed using 1 or more of the falling dose reduction techniques: Automated exposure control, adjustment of the MAA and/or kV according to patient size, and/or use of iterative reconstruction technique Radiation dose: Total exam DLP = 520.76 mGy-cm. FINDINGS: There is limited evaluation of the solid organs without the administration of IV contrast. LOWER THORAX: Minimal bibasilar atelectasis. There is no visible pleural effusion or pneumothorax. Coronary artery calcifications. LIVER: Unremarkable unenhanced appearance. GALLBLADDER AND BILE DUCTS: Cholelithiasis. PANCREAS: Unremarkable unenhanced appearance. SPLEEN: Unremarkable unenhanced appearance. ADRENALS: Unremarkable unenhanced appearance. KIDNEYS AND URETERS: No hydronephrosis or obstructing renal calculus. BLADDER: Air within the urinary bladder; correlate clinically for recent instrumentation. Recommend correlation with urinalysis in order to assess for infection. Urinary bladder is distended. REPRODUCTIVE: Uterus is absent, compatible with hysterectomy. APPENDIX: The appendix appears within normal limits of caliber. No secondary signs of acute appendicitis. BOWEL: The stomach is nondistended. The bowel loops appear within normal limits of caliber without evidence of intestinal obstruction. PERITONEUM: No significant free fluid. Small foci of air identified adjacent to the urinary bladder within the left anterior pelvis. Question whether 1 or 2 of the foci of air reside within the urinary bladder wall, however the majority of air foci appear external to the urinary bladder. LYMPH NODES: Prominent troy hepatis and mesenteric (particularly near the pancreatic head/ uncinate process) lymph nodes. VASCULATURE: No aortic aneurysm. BONES: Extensive lytic osseous metastatic disease predominantly involving the thoracic and lumbar spine and pelvis of the several ribs are also likely involved. OTHER FINDINGS: None. IMPRESSION: Small foci of air identified adjacent to the urinary bladder within the left anterior pelvis. Question whether 1 or 2 of the foci of air reside within the urinary bladder wall raising concern for emphysematous cystitis, however the majority of air foci appear external to the urinary bladder. Correlate clinically for recent surgery. This would be an unusual location for air to reside in the setting of a perforated viscus. Correlate if patient's clinical status. If indicated, suggest 24 hour follow-up CT reimaging through the pelvis. Air within the urinary bladder; correlate clinically for recent instrumentation. Recommend correlation with urinalysis in order to assess for infection. Urinary bladder is distended. Prominent troy hepatis and mesenteric (particularly near the pancreatic head/ uncinate process) lymph nodes. Extensive osseous metastatic disease. Findings discussed with the patient's RN Sapna 02/19/17 5:04 p.m.
[2017-02-20 06:01] LABS: BASO % 0.4 % (0.0-2.0); EOS # 0.1 K/uL (0.0-0.7); EOS % 0.8 % (0.0-4.0); LYMPH # 1.8 K/uL (1.0-4.3); LYMPH % 18.9 % (20.0-40.0); MEAN CELL VOLUME 84.7 fL (81.0-99.0); MEAN CORPUSCULAR HEMOGLOBIN 28.1 pg (27.0-31.0); MEAN CORPUSCULAR HGB CONC 33.2 g/dL (33.0-37.0); MEAN PLATELET VOLUME 7.8 fL (7.2-11.7); MONO # 0.7 K/uL (0.0-0.8); MONO % 7.8 % (0.0-10.0); RED CELL DISTRIBUTION WIDTH 17.6 % (11.5-14.5); WHITE BLOOD COUNT 9.5 K/uL (4.8-10.8)
[2017-02-20 06:08] LABS: CHLORIDE 92 mmol/L (98-107); POTASSIUM 4.4 mmol/L (3.6-5.2); SODIUM 137 mmol/L (132-148)
[2017-02-20 06:11] LABS: BLOOD UREA NITROGEN 23 mg/dL (7-17); CALCIUM 9.6 mg/dl (8.6-10.4); CARBON DIOXIDE 29 mmol/L (22-30); GFR AFRICAN-AMERICAN > 60; GLUCOSE,RANDOM 172 mg/dL (65-105)
[2017-02-20] MEDS: (Novolin R) Insulin Human Regular 100 units/ml vial SC SCH ×4 (09:07→22:00)
[2017-02-20] MEDS: GlipiZIDE 2.5 mg Tab PO SCH ×2 (10:21→17:45)
[2017-02-20] MEDS: Pantoprazole 40 mg EC Tab PO SCH (10:21)
[2017-02-20] MEDS: MethylPREDNISolone 40 mg Vial IVP SCH (10:21)
[2017-02-20] MEDS: Ciprofloxacin 400mg/200ml D5W 200 ML IVPB SCH ×2 (10:25→22:00)
[2017-02-20] MEDS ORDERED: Propofol 10 mg/ml Inj (20 ML) ONE (11:52)
[2017-02-20] MEDS ORDERED: Lactated Ringer's 1,000 ML IV SCH (12:15)
--- NOTE | 2017-02-20 13:58 | CP.PCM.PN ---
Subjective - Date & Time of Evaluation Date of Evaluation: 02/20/17 Time of Evaluation: 13:55 - Subjective Subjective: feels ok doesnot c/o endoscopy don coloscopy in am Objective - Vital Signs/Intake and Output Vital Signs (last 24 hours): Temp Pulse Resp BP Pulse Ox 97 F L 87 14 129/78 100 02/20/17 12:47 02/20/17 12:47 02/20/17 12:47 02/20/17 12:47 02/20/17 12:47 Intake and Output: 02/20/17 02/20/17 06:59 18:59 Intake Total 500 130 Output Total 500 Balance 0 130 - Medications Medications: Current Medications Bisacodyl (Dulcolax) 10 mg PO ONCE ONE Stop: 02/20/17 17:01 Duloxetine HCl (Cymbalta) 60 mg PO DAILY [facility] Last Admin: 02/20/17 10:26 Dose: Not Given Gabapentin (Neurontin) 400 mg PO TID [facility] Last Admin: 02/20/17 10:21 Dose: Not Given Glipizide (Glucotrol) 2.5 mg PO BID [facility] Last Admin: 02/20/17 10:21 Dose: Not Given Ciprofloxacin (Cipro 400mg/200ml Dsw) 200 mls @ 133 mls/hr IVPB Q12 [facility] Last Admin: 02/20/17 10:25 Dose: 133 mls/hr Lactated Ringer's (Lactated Ringer's) 1,000 mls @ 100 mls/hr IV .Q10H [facility] Ibuprofen (Motrin Tab) 600 mg PO Q6H PRN PRN Reason: Pain, moderate (4-7) Insulin Human Regular (Novolin R) 0 unit SC ACHS [facility] PRN Reason: Protocol Last Admin: 02/20/17 12:05 Dose: Not Given Losartan Potassium (Cozaar) 100 mg PO DAILY [facility] Last Admin: 02/20/17 10:25 Dose: 100 mg Methylprednisolone (Solu-Medrol) 40 mg IVP DAILY [facility] Last Admin: 02/20/17 10:21 Dose: 40 mg Metoclopramide HCl (Reglan) 5 mg IVP ACHS [facility] Pantoprazole Sodium (Protonix Ec Tab) 40 mg PO DAILY [facility] Last Admin: 02/20/17 10:21 Dose: Not Given Polyethylene Glycol/Electrolytes (Golytely) 4,000 ml PO ONCE ONE Stop: 02/20/17 14:01 Prednisone (Prednisone Tab) 5 mg PO QOD6 [facility] Last Admin: 02/18/17 18:08 Dose: 5 mg Rosuvastatin Calcium (Crestor) 10 mg PO HS [facility] Last Admin: 02/19/17 22:26 Dose: 10 mg Sitagliptin Phosphate (Januvia) 100 mg PO DAILY [facility] Last Admin: 02/20/17 10:21 Dose: Not Given Sucralfate (Carafate Tab) 1 gm PO BID [facility] Last Admin: 02/20/17 10:26 Dose: Not Given - Labs Labs: 02/20/17 05:54 02/20/17 05:54 PT 11.5 SECONDS (9.7-12.2) 02/16/17 19:39 INR 1.0 02/16/17 19:39 APTT 35 SECONDS (21-34) H 02/16/17 19:39 - Constitutional Appears: Non-toxic - Head Exam Head Exam: NORMAL INSPECTION - Eye Exam Eye Exam: Normal appearance Pupil Exam: NORMAL ACCOMODATION - ENT Exam ENT Exam: Mucous Membranes Moist - Neck Exam Neck Exam: Full ROM - Respiratory Exam Respiratory Exam: NORMAL BREATHING PATTERN - Cardiovascular Exam Cardiovascular Exam: REGULAR RHYTHM - GI/Abdominal Exam GI & Abdominal Exam: Normal Bowel Sounds - Rectal Exam Rectal Exam: NORMAL INSPECTION - Exam Exam: NORMAL INSPECTION - Extremities Exam Extremities Exam: Normal Capillary Refill - Back Exam Back Exam: NORMAL INSPECTION - Neurological Exam Neurological Exam: Normal Gait - Psychiatric Exam Psychiatric exam: Normal Affect - Skin Skin Exam: Normal Color Assessment and Plan - Assessment and Plan (Free Text) Assessment: oesophigitis Plan: colonoscopy in am cont curent med
[2017-02-20] MEDS ORDERED: Peg-Electrolyte Oral Soln 4L (Golytely) PO ONE (14:00)
--- NOTE | 2017-02-20 16:50 | CARD ---
APPROVED REPORT EKG Measurement Heart [id number] <Conclusion> Normal sinus rhythm Moderate voltage criteria for LVH, may be normal variant Borderline ECG
[2017-02-20] MEDS ORDERED: Bisacodyl 5mg EC Tab PO ONE (17:00)
[2017-02-21] MEDS: (Novolin R) Insulin Human Regular 100 units/ml vial SC SCH ×4 (09:01→21:59)
[2017-02-21] MEDS: GlipiZIDE 2.5 mg Tab PO SCH ×2 (10:15→19:03)
[2017-02-21] MEDS: Pantoprazole 40 mg EC Tab PO SCH (10:16)
[2017-02-21] MEDS: MethylPREDNISolone 40 mg Vial IVP SCH (10:19)
[2017-02-21] MEDS: Ciprofloxacin 400mg/200ml D5W 200 ML IVPB SCH ×2 (10:20→21:12)
[2017-02-21] MEDS ORDERED: Propofol 10 mg/ml Inj (20 ML) ONE (11:56)
[2017-02-21] MEDS ORDERED: Lactated Ringer's 500 ML IV ONE ×2 (12:04)
--- NOTE | 2017-02-21 13:11 | CARD ---
APPROVED REPORT EKG Measurement Heart [id number] <Conclusion> Sinus tachycardia Minimal voltage criteria for LVH, may be normal variant Inferior infarct, age undetermined Abnormal ECG
[2017-02-21] MEDS ORDERED: Magnesium Citrate Oral SOL (300 ml) PO ONE (14:00)
[2017-02-21] MEDS: Sodium Chloride 0.9% 1,000 ML IV SCH (19:07)
--- NOTE | 2017-02-21 19:43 | CP.PCM.PN ---
Subjective - Date & Time of Evaluation Date of Evaluation: 02/21/17 Time of Evaluation: 19:41 - Subjective Subjective: COUID NOT FINISH COLONOSCOPY NEED MORE PREP BS 500 Objective - Vital Signs/Intake and Output Vital Signs (last 24 hours): Temp Pulse Resp BP Pulse Ox 98.4 F 78 20 170/98 H 96 02/21/17 16:00 02/21/17 16:00 02/21/17 16:00 02/21/17 16:00 02/21/17 16:00 Intake and Output: 02/21/17 02/22/17 18:59 06:59 Intake Total 240 Balance 240 - Medications Medications: Current Medications Duloxetine HCl (Cymbalta) 60 mg PO DAILY [facility] Last Admin: 02/21/17 10:15 Dose: Not Given Gabapentin (Neurontin) 400 mg PO TID [facility] Last Admin: 02/21/17 19:03 Dose: 400 mg Glipizide (Glucotrol) 5 mg PO TID [facility] Ciprofloxacin (Cipro 400mg/200ml Dsw) 200 mls @ 133 mls/hr IVPB Q12 [facility] Last Admin: 02/21/17 10:20 Dose: 133 mls/hr Sodium Chloride (Sodium Chloride 0.9%) 1,000 mls @ 80 mls/hr IV .[id number] [facility] Last Admin: 02/21/17 19:07 Dose: 80 mls/hr Ibuprofen (Motrin Tab) 600 mg PO Q6H PRN PRN Reason: Pain, moderate (4-7) Last Admin: 02/21/17 19:02 Dose: 600 mg Insulin Human Regular (Novolin R) [address] [facility] PRN Reason: Protocol Last Admin: 02/21/17 17:00 Dose: 1 unit Losartan Potassium (Cozaar) 100 mg PO DAILY [facility] Last Admin: 02/21/17 10:19 Dose: 100 mg Methylprednisolone (Solu-Medrol) 40 mg IVP DAILY [facility] Last Admin: 02/21/17 10:19 Dose: 40 mg Metoclopramide HCl (Reglan) 5 mg IVP ACHS [facility] Last Admin: 02/21/17 19:04 Dose: 5 mg Pantoprazole Sodium (Protonix Ec Tab) 40 mg PO DAILY [facility] Last Admin: 02/21/17 10:16 Dose: Not Given Prednisone (Prednisone Tab) 5 mg PO QOD6 [facility] Last Admin: 02/20/17 17:45 Dose: 5 mg Rosuvastatin Calcium (Crestor) 10 mg PO HS [facility] Last Admin: 02/20/17 22:00 Dose: Not Given Sitagliptin Phosphate (Januvia) 100 mg PO DAILY [facility] Last Admin: 02/21/17 10:15 Dose: Not Given Sucralfate (Carafate Tab) 1 gm PO BID [facility] Last Admin: 02/21/17 19:03 Dose: 1 gm - Labs Labs: 02/20/17 05:54 02/20/17 05:54 PT 11.5 SECONDS (9.7-12.2) 02/16/17 19:39 INR 1.0 02/16/17 19:39 APTT 35 SECONDS (21-34) H 02/16/17 19:39 - Constitutional Appears: Non-toxic - Head Exam Head Exam: NORMAL INSPECTION - Eye Exam Eye Exam: Normal appearance Pupil Exam: NORMAL ACCOMODATION - ENT Exam ENT Exam: Mucous Membranes Moist - Neck Exam Neck Exam: Normal Inspection - Respiratory Exam Respiratory Exam: NORMAL BREATHING PATTERN - Cardiovascular Exam Cardiovascular Exam: REGULAR RHYTHM - GI/Abdominal Exam GI & Abdominal Exam: Normal Bowel Sounds - Rectal Exam Rectal Exam: NORMAL INSPECTION - Extremities Exam Extremities Exam: Full ROM - Back Exam Back Exam: NORMAL INSPECTION - Neurological Exam Neurological Exam: Normal Gait - Psychiatric Exam Psychiatric exam: Normal Affect - Skin Skin Exam: Dry Assessment and Plan - Assessment and Plan (Free Text) Assessment: UNCONTROLED DM WT LOSS Plan: PER ORDERS
[2017-02-22 08:16] LABS: BASO % 0.3 % (0.0-2.0); EOS # 0.3 K/uL (0.0-0.7); EOS % 3.2 % (0.0-4.0); HEMATOCRIT 28.8 % (34.0-47.0); LYMPH # 1.8 K/uL (1.0-4.3); LYMPH % 22.4 % (20.0-40.0); MEAN CELL VOLUME 84.8 fL (81.0-99.0); MEAN CORPUSCULAR HEMOGLOBIN 28.2 pg (27.0-31.0); MEAN CORPUSCULAR HGB CONC 33.3 g/dL (33.0-37.0); MEAN PLATELET VOLUME 7.5 fL (7.2-11.7); MONO # 0.7 K/uL (0.0-0.8); MONO % 8.2 % (0.0-10.0); RED CELL DISTRIBUTION WIDTH 17.6 % (11.5-14.5); WHITE BLOOD COUNT 8.2 K/uL (4.8-10.8)
[2017-02-22 08:32] LABS: CHLORIDE 93 mmol/L (98-107); POTASSIUM 3.9 mmol/L (3.6-5.2); SODIUM 133 mmol/L (132-148)
[2017-02-22 08:35] LABS: CARBON DIOXIDE 29 mmol/L (22-30); GFR AFRICAN-AMERICAN > 60
[2017-02-22 08:36] LABS: BLOOD UREA NITROGEN 13 mg/dL (7-17); CALCIUM 8.5 mg/dl (8.6-10.4); GLUCOSE,RANDOM 92 mg/dL (65-105)
[2017-02-22] MEDS: (Novolin R) Insulin Human Regular 100 units/ml vial SC SCH ×3 (08:43→17:04)
[2017-02-22] MEDS ORDERED: Propofol 10 mg/ml Inj (20 ML) ONE (10:39)
[2017-02-22] MEDS ORDERED: Glucagon Recombinant 1 mg Inj ONE (10:47)
[2017-02-22] MEDS ORDERED: Lactated Ringer's 1,000 ML IV SCH (11:00)
[2017-02-22] MEDS: Ciprofloxacin 400mg/200ml D5W 200 ML IVPB SCH (11:01)
[2017-02-22] MEDS: MethylPREDNISolone 40 mg Vial IVP SCH (11:03)
[2017-02-22] MEDS: Pantoprazole 40 mg EC Tab PO SCH (11:03)
--- NOTE | 2017-02-22 11:17 | CP.PCM.PN ---
Subjective - Date & Time of Evaluation Date of Evaluation: 02/22/17 Time of Evaluation: 11:14 - Subjective Subjective: had colonoscpy today pt in no distress vss lung cleare [id number] abd soft l l no oeadeama will resume diet if tolerated my go home on laxative ass hemeroids int spastic colon constipation fecal impactionuti recurent falls my need rehab Objective - Vital Signs/Intake and Output Vital Signs (last 24 hours): Temp Pulse Resp BP Pulse Ox 97.7 F 78 20 142/72 98 02/22/17 10:33 02/22/17 10:33 02/22/17 10:33 02/22/17 10:33 02/22/17 10:33 Intake and Output: 02/22/17 02/22/17 06:59 18:59 Intake Total 2020 150 Output Total 500 Balance 1520 150 - Medications Medications: Current Medications Duloxetine HCl (Cymbalta) 60 mg PO DAILY [facility] Last Admin: 02/22/17 11:02 Dose: Not Given Gabapentin (Neurontin) 400 mg PO TID [facility] Last Admin: 02/22/17 11:03 Dose: Not Given Glipizide (Glucotrol) 5 mg PO TIDAC [facility] Last Admin: 02/22/17 08:43 Dose: Not Given Ciprofloxacin (Cipro 400mg/200ml Dsw) 200 mls @ 133 mls/hr IVPB Q12 [facility] Last Admin: 02/22/17 11:01 Dose: Not Given Sodium Chloride (Sodium Chloride 0.9%) 1,000 mls @ 80 mls/hr IV .[id number] [facility] Last Admin: 02/21/17 19:07 Dose: 80 mls/hr Lactated Ringer's (Lactated Ringer's) 1,000 mls @ 80 mls/hr IV .[id number] [facility] Ibuprofen (Motrin Tab) 600 mg PO Q6H PRN PRN Reason: Pain, moderate (4-7) Last Admin: 02/21/17 19:02 Dose: 600 mg Insulin Human Regular (Novolin R) 0 unit SC ACHS [facility] PRN Reason: Protocol Last Admin: 02/22/17 08:43 Dose: Not Given Losartan Potassium (Cozaar) 100 mg PO DAILY [facility] Last Admin: 02/22/17 11:01 Dose: Not Given Methylprednisolone (Solu-Medrol) 40 mg IVP DAILY [facility] Last Admin: 02/22/17 11:03 Dose: Not Given Metoclopramide HCl (Reglan) 5 mg IVP ACHS [facility] Last Admin: 02/22/17 08:00 Dose: 5 mg Pantoprazole Sodium (Protonix Ec Tab) 40 mg PO DAILY [facility] Last Admin: 02/22/17 11:03 Dose: Not Given Prednisone (Prednisone Tab) 5 mg PO QOD6 [facility] Last Admin: 02/20/17 17:45 Dose: 5 mg Rosuvastatin Calcium (Crestor) 10 mg PO HS [facility] Last Admin: 02/21/17 21:11 Dose: 10 mg Sitagliptin Phosphate (Januvia) 100 mg PO DAILY [facility] Last Admin: 02/22/17 11:02 Dose: Not Given Sucralfate (Carafate Tab) 1 gm PO BID [facility] Last Admin: 02/22/17 11:00 Dose: Not Given - Labs Labs: 02/22/17 07:59 02/22/17 07:59 PT 11.5 SECONDS (9.7-12.2) 02/16/17 19:39 INR 1.0 02/16/17 19:39 APTT 35 SECONDS (21-34) H 02/16/17 19:39
[2017-02-22] MEDS: Sodium Chloride 0.9% 1,000 ML IV SCH (12:19)
--- NOTE | 2017-02-22 15:15 | CP.PCM.PN ---
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 FUNK, PT CAN BE DISCHARGED TO [facility] TODAY Objective - Vital Signs/Intake and Output Vital Signs (last 24 hours): Temp Pulse Resp BP Pulse Ox 97.5 F L 68 13 132/64 100 02/22/17 11:00 02/22/17 11:30 02/22/17 11:30 02/22/17 11:30 02/22/17 11:30 Intake and Output: 02/22/17 02/22/17 06:59 18:59 Intake Total 2020 250 Output Total 500 Balance 1520 250 - Medications Medications: Current Medications Duloxetine HCl (Cymbalta) 60 mg PO DAILY [facility] Last Admin: 02/22/17 11:02 Dose: Not Given Gabapentin (Neurontin) 400 mg PO TID [facility] Last Admin: 02/22/17 14:49 Dose: 400 mg Glipizide (Glucotrol) 5 mg PO TIDAC [facility] Last Admin: 02/22/17 12:16 Dose: 5 mg Ciprofloxacin (Cipro 400mg/200ml Dsw) 200 mls @ 133 mls/hr IVPB Q12 [facility] Last Admin: 02/22/17 11:01 Dose: Not Given Sodium Chloride (Sodium Chloride 0.9%) 1,000 mls @ 80 mls/hr IV .[id number] [facility] Last Admin: 02/22/17 12:19 Dose: 80 mls/hr Lactated Ringer's (Lactated Ringer's) 1,000 mls @ 80 mls/hr IV .[id number] [facility] Ibuprofen (Motrin Tab) 600 mg PO Q6H PRN PRN Reason: Pain, moderate (4-7) Last Admin: 02/21/17 19:02 Dose: 600 mg Insulin Human Regular (Novolin R) 0 unit SC ACHS [facility] PRN Reason: Protocol Last Admin: 02/22/17 12:15 Dose: 4 unit Losartan Potassium (Cozaar) 100 mg PO DAILY [facility] Last Admin: 02/22/17 11:01 Dose: Not Given Methylprednisolone (Solu-Medrol) 40 mg IVP DAILY [facility] Last Admin: 02/22/17 11:03 Dose: Not Given Metoclopramide HCl (Reglan) 5 mg IVP ACHS [facility] Last Admin: 02/22/17 12:24 Dose: 5 mg Pantoprazole Sodium (Protonix Ec Tab) 40 mg PO DAILY [facility] Last Admin: 02/22/17 11:03 Dose: Not Given Prednisone (Prednisone Tab) 5 mg PO QOD6 [facility] Last Admin: 02/20/17 17:45 Dose: 5 mg Rosuvastatin Calcium (Crestor) 10 mg PO HS [facility] Last Admin: 02/21/17 21:11 Dose: 10 mg Sitagliptin Phosphate (Januvia) 100 mg PO DAILY [facility] Last Admin: 02/22/17 11:02 Dose: Not Given - Labs Labs: 02/22/17 07:59 02/22/17 07:59 PT 11.5 SECONDS (9.7-12.2) 02/16/17 19:39 INR 1.0 02/16/17 19:39 APTT 35 SECONDS (21-34) H 02/16/17 19:39
[2017-02-22 15:46] VITALS: BP 148/83; PULSE 90; RESP 20; TEMP 98.3; O2SAT 95
--- NOTE | 2017-02-23 08:18 | CON ---
DATE: 02/19/2017 DATE: 02/19/2017. From Dr. Guerda Delgado to Dr. Cammy Olvera. I was called for a GI consultation by the admitting MD. The patient is seen and fully examined on 02/19/2017 as requested by the admitting MD, as well as the medical staff on the floor. The entire chart is reviewed, including but not limited to the most recent lab and radiology study results, current a nd previous medication list, current and the previous medical events, allergies to medication list as well as all the available current and the previous medical record. HISTORY OF PRESENT ILLNESS: This is a 66-year-old female who was admitted to the hospital with a mac nge of mental status, generalized weakness and malaise, reported having excessive body weight loss re cently with generalized weakness and malaise, being disoriented and confused. No reported active ble eding but dyspepsia and some change of bowel movement habit recently. PAST MEDICAL HISTORY: Including but not limited to: 1. Diabetes mellitus. 2. Hyperlipidemia. 3. Hypertension. 4. Osteoarthritis. 5. Chronic renal disease. 6. Questionable sarcoidosis. FAMILY HISTORY: Unknown. SOCIAL HISTORY: No reported recent history of cigarette smoking or alcohol intake. ALLERGIES TO MEDICATION: Unclear. CURRENT MEDICATIONS: Medication lists were reviewed. LABORATORY DATA: After being admitted to the hospital, the patient was found to have leukocytosis of 11.0 with hemoglobin 10.9, hematocrit 33.1 with low sodium of 130, increased blood glucose level to 230 with lower albumin and total protein than before. PHYSICAL EXAMINATION: GENERAL: A 66-year-old female, appears to be mildly pale. VITAL SIGNS: Afebrile at the time she was seen by me, with ____ 100 respiratory rate 18-20, blood pr essure 164/84. HEENT: Showed pale, dry oral mucoid membrane. Nonicteric sclerae. LUNGS: Few scattered crepitation, decreased air entry at bases. HEART: Positive S1 and S2 with increased rate. ABDOMEN: Soft. EXTREMITIES: Without edema, clubbing or cyanosis. NEUROLOGIC: No clear evidence of reported new neurological deficit, sensory or motor. IMPRESSION: 1. Change of mental status of unclear etiology. 2. Anemia. Rule out gastrointestinal blood loss, upper versus lower versus upper gastrointestinal m alignancy. 3. Multiple past medical history including, but not limited to hypertension, hyperlipidemia, diabete s mellitus as well as osteoarthritis and questionable sarcoidosis. 4. Electrolyte imbalance with hyponatremia and reported malnutrition. SUGGESTION: 1. Agree with your plan. 2. Cancer markers. 3. Guaiac all the stool daily x 3. 4. Proton pump inhibitors. 5. Endoscopic evaluation of the GI tract when the patient is more stable clinically. Thank you for letting me participate in your patient's case management. Further recommendation to madiha haas. Guerda Delgado MD cc: [id number] TT: 02/23/2017 08:18:41 Confirmation # [id number] Dictation # [id number] jn
--- NOTE | 2017-03-13 06:55 | DS ---
The patient is a 66-year-old brought in to the Emergency Department because she has new altered menta l status. She has been having dementia, progressing in the last year. She was found really confused a nd disoriented. As per her son, she lost a lot of weight. She may have a history of sarcoidosis. On a dmission, she was crying, confused, and not talking. Could not get any history from her. She had abdo tomasa and pelvic CAT scan done which was nonspecific except for gallstones. Because of her significan t weight loss, we called Dr. Delgado for GI consultation. She did have endoscopy which showed some hiat us hernia and a little bit of gastritis. She also went for colonoscopy which showed mild spasm and co litis. The colonoscopy personal history was also internal hemorrhoids - left-sided colitis, spastic c olon, internal hemorrhoids ____. The patient was tolerating diet and she was improving. She was seen by neurology. She was feeling okay after the scope. There was no discomfort. She was on medications f or her diabetes; she was on glipizide, she was on gabapentin. She was started on Cipro because she di d have some urinary tract infection and for the colitis as well. She was also on insulin, losartan fo r her blood pressure, methylprednisolone for the colitis, Reglan and polyethylene glycol for the cons tipation. Her hemoglobin/hematocrit was 10.6/32. Her sugar was 172. So patient was improving and stab le, and was discharged to her son to be followed up by her previous MD. FINAL DIAGNOSES: Acute altered mental status, dementia, ____ disease of the brain, anemia, weight lo ss, depression, colitis, hemorrhoids and gastritis ____. Cammy Olvera MD cc: [id number] TT: 03/12/2017 13:04:25 rigoberto
== END 2017-02-22 17:25 | DRG 71 ==
LOC: C.ER 18:29 → C.9E 22:35 → C.3T 23:00
PROVIDERS: ADMIT Internal Medicine; ATTEND Internal Medicine
PROC: 0DB88ZX Excision of Small Intestine, Via Natural or Artificial Opening Endoscopic, Diagnostic (ICD-10-PCS; principal; 2017-02-20 11:58)
PROC: 0DBE8ZX Excision of Large Intestine, Via Natural or Artificial Opening Endoscopic, Diagnostic (ICD-10-PCS; 2017-02-21)
DX: G93.41 Metabolic encephalopathy (principal); N17.9 Acute kidney failure, unspecified; E46 Unspecified protein-calorie malnutrition; F03.90 Unspecified dementia, unspecified severity, without behavioral disturbance, psychotic disturbance, mood disturbance, and anxiety; N39.0 Urinary tract infection, site not specified; E87.1 Hypo-osmolality and hyponatremia; D64.9 Anemia, unspecified; I12.9 Hypertensive chronic kidney disease with stage 1 through stage 4 chronic kidney disease, or unspecified chronic kidney disease; M19.90 Unspecified osteoarthritis, unspecified site; E11.22 Type 2 diabetes mellitus with diabetic chronic kidney disease; E11.40 Type 2 diabetes mellitus with diabetic neuropathy, unspecified; E78.00 Pure hypercholesterolemia, unspecified; N18.9 Chronic kidney disease, unspecified; Z79.4 Long term (current) use of insulin; E78.5 Hyperlipidemia, unspecified; D86.9 Sarcoidosis, unspecified; K21.9 Gastro-esophageal reflux disease without esophagitis; Z91.81 History of falling; K58.9 Irritable bowel syndrome, unspecified; K20.8 Other esophagitis; K44.9 Diaphragmatic hernia without obstruction or gangrene; K64.4 Residual hemorrhoidal skin tags; K64.8 Other hemorrhoids; K29.70 Gastritis, unspecified, without bleeding

== ENCOUNTER 2017-05-17 15:14 | Emergency (ER) | payer MEDICARE, MEDICAID ==
[2017-05-17 15:35] VITALS: BMI 24.1
[2017-05-17] MEDS ORDERED: Sodium Chloride 0.9% 1,000 ML IV ONE (15:51)
--- NOTE | 2017-05-17 15:59 | C.PDOC ---
History Of Present Illness 67 y/o female presents to the ED with complaints of feeling dizzy for the past 3 months. Today patient slipped in the tub and hit the back of her head on the wall, no LOC. Pt states she is now more dizzy than before with occasional nausea. Pt's sister states she is talking slower than usual. Denies any other injuries. Patient has been evaluated for dizziness in the past, takes meclizine. Patient was seen by PMD 05/10 for urinary symptoms and treated, still taking macrobid. - HPI Time Seen by Provider: 05/17/17 15:43 Chief Complaint (Nursing): Dizziness/Lightheaded History Per: Patient History/Exam Limitations: no limitations Onset/Duration Of Symptoms: Hrs Associated Symptoms: Dizziness Recent travel outside of the [place]: No - Fall Fall:Prior To Injury: Slipped Past Medical History Reviewed: Historical Data, Nursing Documentation, Vital Signs Vital Signs: Last Vital Signs Temp 98.0 F 05/17/17 17:22 Pulse 85 05/17/17 17:22 Resp 17 05/17/17 17:22 BP 126/72 05/17/17 17:22 Pulse Ox 96 05/17/17 17:22 - Medical History PMH: Arthritis, Diabetes (IDDM), HTN, Hypercholesterolemia, Malignancy (?), Chronic Kidney Disease - [facility] Procedures EXCISION OF LARGE INTESTINE, ENDO, DIAGN (02/16/17) EXCISION OF SMALL INTESTINE, ENDO, DIAGN (02/16/17) Family History: States: Unknown Family Hx - Social History Hx Alcohol Use: No Hx Substance Use: No - Immunization History Hx Tetanus Toxoid Vaccination: No Hx Influenza Vaccination: No Hx Pneumococcal Vaccination: No Review Of Systems Constitutional: Negative for: Fever Eyes: Negative for: Vision Change Respiratory: Negative for: Shortness of Breath Gastrointestinal: Positive for: Nausea. Negative for: Vomiting, Abdominal Pain Neurological: Positive for: Dizziness. Negative for: Weakness, Numbness Physical Exam - Physical Exam Appears: Non-toxic, No Acute Distress Skin: Warm, Dry, No Rash Head: Atraumatic, Normacephalic, Tenderness (mild tenderness to posterior scalp) , No Swelling, No Abrasion, No Laceration, Other (no hematoma) Eye(s): bilateral: Normal Inspection (no nystagmus), PERRL, EOMI Nose: Normal Oral Mucosa: Moist Neck: Normal, Normal ROM, Supple Chest: Symmetrical Cardiovascular: Rhythm Regular, No Murmur Respiratory: Normal Breath Sounds, No Rales, No Rhonchi, No Wheezing Gastrointestinal/Abdominal: Normal Exam, Soft, No Tenderness Back: No Vertebral Tenderness Extremity: Bilateral: Atraumatic, Normal Color And Temperature, Normal ROM Neurological/Psych: Oriented x3, Normal Speech, Normal Cranial Nerves, Normal Motor (all extremities), Normal Sensation Gait: Steady ED Course And Treatment - Laboratory Results Result Diagrams: 05/17/17 16:03 05/17/17 16:38 Lab Interpretation: No Acute Changes ECG: Interpreted By Me, Viewed By Me ECG Rhythm: Sinus Rhythm Rate From EC (BPM) O2 Sat by Pulse Oximetry: 95 (room air) Pulse Ox Interpretation: Normal Medical Decision Making Medical Decision Making: Plan: * CT head * labs * IV fluids * Reglan Progress: CT shows no acute process. Patient remained alert and oriented in no acute distress. She reports dizziness improving. Neuro and vitals intact and stable. Discussed results with patient and family, HIPAA compliant. Patient and family feel comfortable going home and will be discharged. Instruct to follow up with PCP Disposition Counseled Patient/Family Regarding: Need For Followup, Rx Given - Disposition Referrals: Robert Villar MD [Medical Doctor] - Disposition: HOME/ ROUTINE Disposition Time: 17:14 Condition: STABLE Additional Instructions: Vaya a dewitt mdico o la clnica en 2-5 german sin falta, para mas evaluacin. [place] los medicamentos [place] indicado. Volver a la james de emergencia en cualquier momento si los sntomas persisten o empeoran. Prescriptions: Metoclopramide [Reglan] 1 tab PO TID PRN #25 tab PRN Reason: Nausea/Vomiting Instructions: Vertigo (ED) Print Language: YEMENI - POA Present On Arrival: None - Clinical Impression Clinical Impression: Dizziness, Closed head injury - PA / [employer] / Resident Statement MD/DO has reviewed & agrees with the documentation as recorded. - Scribe Statement The provider has reviewed the documentation as recorded by the Scribe Bishnu Bruner All medical record entries made by the Scribe were at my direction and personally dictated by me. I have reviewed the chart and agree that the record accurately reflects my personal performance of the history, physical exam, medical decision making, and the department course for this patient. I have also personally directed, reviewed, and agree with the discharge instructions and disposition.
[2017-05-17] MEDS ORDERED: Sodium Chloride 0.9% 1,000 ML ONE (16:04)
[2017-05-17] MEDS ORDERED: Sodium Chloride 0.9% 50 ML IV ONE (16:05)
[2017-05-17 16:06] LABS: BASO # 0.1 K/uL (0.0-0.2); BASO % 1.2 % (0.0-2.0); EOS # 0.2 K/uL (0.0-0.7); EOS % 4.2 % (0.0-4.0); HEMOGLOBIN 11.5 g/dL (11.0-16.0); LYMPH # 1.9 K/uL (1.0-4.3); LYMPH % 32.3 % (20.0-40.0); MEAN CORPUSCULAR HEMOGLOBIN 27.5 pg (27.0-31.0); MEAN CORPUSCULAR HGB CONC 32.8 g/dL (33.0-37.0); MEAN PLATELET VOLUME 7.9 fL (7.2-11.7); MONO # 0.8 K/uL (0.0-0.8); MONO % 13.1 % (0.0-10.0); NEUT # 2.9 K/uL (1.8-7.0); NEUT % 49.2 % (50.0-75.0); NRBC % 0.1 % (0.0-2.0); RBC 4.17 Mil/uL (3.80-5.20); RED CELL DISTRIBUTION WIDTH 13.9 % (11.5-14.5); WHITE BLOOD COUNT 5.9 K/uL (4.8-10.8)
--- NOTE | 2017-05-17 16:32 | CT ---
PROCEDURE: CT HEAD WITHOUT CONTRAST. HISTORY: dizzy x3 weeks, fell today hit head COMPARISON: 02/16/2017 TECHNIQUE: Axial computed tomography images were obtained through the head/brain without intravenous contrast. Radiation dose: Total exam DLP = 826.92 mGy-cm. This CT exam was performed using one or more of the following dose reduction techniques: Automated exposure control, adjustment of the mA and/or kV according to patient size, and/or use of iterative reconstruction technique. FINDINGS: HEMORRHAGE: No intracranial hemorrhage. BRAIN: No mass effect or edema. No significant atrophy. Mild periventricular white matter lucency with patchy deep and subcortical white matter lucency consistent with age-related microvascular ischemic change. No evidence of acute infarct. VENTRICLES: Unremarkable. No hydrocephalus. CALVARIUM: Multiple lytic lesions of varying size throughout the calvarium suspicious for metastatic disease. Consider also multiple myeloma. There is also a moderate-sized lytic lesion of the left clivus. Evaluation with magnetic resonance imaging is urged. There is a lytic lesion of the right posterior temporal bone. This involves the posterior inferior mastoid. There is a lytic lesion of the left inferior mastoid tip. There is a lytic lesion of the left greater sphenoid wing, laterally. Cannot rule out minimal epidural extension. Further evaluation with magnetic resonance imaging with gadolinium is advised. PARANASAL SINUSES: Unremarkable as visualized. No significant inflammatory changes. MASTOID AIR CELLS: Unremarkable as visualized. No inflammatory changes. OTHER FINDINGS: None. IMPRESSION: Chronic microvascular white matter ischemic change. No intracranial mass, hemorrhage or evidence of acute infarct. 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 Further evaluation with gadolinium enhanced magnetic resonance imaging is advised.
[2017-05-17 16:57] LABS: ALBUMIN 3.6 g/dL (3.5-5.0)
[2017-05-17 17:00] LABS: ALB/GLOB RATIO 0.8 (1.0-2.1)
[2017-05-17 17:23] VITALS: BP 126/72; PULSE 85; RESP 17; TEMP 98
[2017-05-19 07:42] VITALS: O2SAT 95
--- NOTE | 2017-05-20 14:06 | CARD ---
APPROVED REPORT EKG Measurement Heart [id number] <Conclusion> Normal sinus rhythm Normal ECG
== END 2017-05-17 17:31 | disposition home or self-care (01) ==
LOC: C.ER 15:14
DX: R42 Dizziness and giddiness (principal); S09.90XA Unspecified injury of head, initial encounter; W18.2XXA Fall in (into) shower or empty bathtub, initial encounter; Y93.E1 Activity, personal bathing and showering; I10 Essential (primary) hypertension; E22.9 Hyperfunction of pituitary gland, unspecified; E78.00 Pure hypercholesterolemia, unspecified; E11.9 Type 2 diabetes mellitus without complications
CPT/HCPCS: 70450; 80053; 82009; 85025; 96361; 96374; 99285; J2765; J7040

== ENCOUNTER 2017-05-30 00:58 | Inpatient (IN) | payer MEDICAID, MEDICARE ==
[2017-05-30 00:59] VITALS: BMI 24.1
[2017-05-30] MEDS ORDERED: Sodium Chloride 0.9% 1,000 ML IV ONE (01:22)
--- NOTE | 2017-05-30 01:26 | C.PDOC ---
History Of Present Illness Patient is a 67 y/o female, with PMHx of multiple myeloma, that is brought to the ED by family for evaluation of unsteady gait, and confusion at home for the last few days. Pt complains of mild headache. Otherwise, denies any nausea, vomiting, visual changes, dizziness, weakness, numbness, or any other associated symptoms at this time. Chief Complaint (Nursing): Altered Mental Status History Per: Family History/Exam Limitations: None Onset/Duration Of Symptoms: Days Current Symptoms Are (Timing): Still Present Recent travel outside of the [place]: No Additional History Per: Patient Associated Symptoms: Headache, Confused Past Medical History Reviewed: Historical Data, Nursing Documentation, Vital Signs Vital Signs: Last Vital Signs Temp 98.3 F 05/30/17 01:20 Pulse 88 05/30/17 01:20 Resp 18 05/30/17 01:20 BP 128/84 05/30/17 01:20 Pulse Ox 97 05/30/17 03:26 - Medical History PMH: Arthritis, Diabetes (IDDM), HTN, Hypercholesterolemia, Malignancy (?), Chronic Kidney Disease - [facility] Procedures EXCISION OF LARGE INTESTINE, ENDO, DIAGN (02/16/17) EXCISION OF SMALL INTESTINE, ENDO, DIAGN (02/16/17) Family History: States: Unknown Family Hx - Social History Hx Alcohol Use: No Hx Substance Use: No - Immunization History Hx Tetanus Toxoid Vaccination: No Hx Influenza Vaccination: No Hx Pneumococcal Vaccination: No Review Of Systems Except As Marked, All Systems Reviewed And Found Negative. Constitutional: Negative for: Fever, Chills Cardiovascular: Negative for: Chest Pain, Palpitations Respiratory: Negative for: Shortness of Breath Gastrointestinal: Negative for: Nausea, Vomiting, Abdominal Pain Skin: Negative for: Rash Neurological: Positive for: Confusion, Headache. Negative for: Weakness, Numbness, Dizziness Physical Exam - Physical Exam Appears: Non-toxic, No Acute Distress Skin: Normal Color, Warm, Dry Head: Atraumatic, Normacephalic Eye(s): bilateral: Normal Inspection Neck: Normal ROM, Supple Chest: Symmetrical Cardiovascular: Rhythm Regular, No Murmur Respiratory: Normal Breath Sounds, No Accessory Muscle Use, No Rales, No Rhonchi , No Wheezing Gastrointestinal/Abdominal: Soft, No Tenderness Extremity: Bilateral: Atraumatic, Normal ROM Neurological/Psych: Oriented x3 (alert, conscious), Normal Speech, Normal Cognition, No Other (no focal deficts) ED Course And Treatment - Laboratory Results Result Diagrams: 05/30/17 01:35 05/30/17 01:35 ECG Interpretation: Normal, No Acute Changes Interpretation Of ECG: NSR, normal tracings Rate From EC O2 Sat by Pulse Oximetry: 97 (on RA) Pulse Ox Interpretation: Normal - CT Scan/US Head CT Other Rad Studies (CT/US): Read By Radiologist, Radiology Report Reviewed CT/US Interpretation: FINDINGS: There is atrophy. There is chronic small vessel ischemic disease. There is no hemorrhage or edema. No significant fluid in the sinuses. multiple lytic lesions with possiblity of epidural extension. Again seen are numerous lytic lesions throughout the calvarium including lesions of the clivus,. sphenoid wings,mastoids concerning for metastatic disease or multiple myeloma. The lesions are. more prominent than prior study of January 2016 however please note that this is not the most recent. study. There is increased density in the extra-axial space adjacent to the lytic lesion in the lateral left. sphenoid wing raising the possibility of epidural extension as discussed in prior report that could be. better evaluated with contrast MRI if not already performed. Ideally, direct correlation with the images. would be performed to determine whether this represents a change. IMPRESSION: Numerous lytic lesions throughout the calvarium, a finding documented in multiple prior CT scans. Increased density in the extra-axial space adjacent to the lytic lesion in the lateral left sphenoid wing. raising the possibility of epidural extension as discussed in the prior report that could be better. evaluated with contrast MRI if not already performed. Ideally, direct correlation with the images would. be performed to determine whether this represents a change. Progress Note: Blood work, urinalysis, head CT, EKG ordered and reviewed. Patient was given IV fluids in the ER. NIHSS Stroke Scale - Date/Time Evaluation Performed Date Performed: 05/30/17 Time Performed: 01:29 When Was NIHSS Performed: Baseline - How Severe is the [place] Level of Consciousness: 0=Alert LOC to Questions: 0=Both comments correct LOC to commands: 0=Obeys both correctly Visual: 0=No visual loss Facial: 0=Normal Motor Arm - Left: 0=No drift Motor Arm - Right: 0=No drift Motor Leg - Left: 0=No drift Motor Leg - Right: 0=No drift Limb Ataxia: 0=Absent Sensory: 0=Normal Best Language: 0=No aphasia Dysarthia: 0=Normal articulation Extinction & Inattention (Neglect): 0=Normal, no object Severity Of Stroke: 0= No Stroke Disposition Discussed With : Cameron Gracia Jr. Doctor Will See Patient In The: Hospital Counseled Patient/Family Regarding: Diagnosis - Disposition Disposition: HOSPITALIZED Disposition Time: 03:20 Condition: STABLE - POA Present On Arrival: None, Blood Incompatibility - Clinical Impression Clinical Impression: Altered mental status, Renal insufficiency, mild, Multiple myeloma, Lytic lesion of bone on x-ray - Scribe Statement The provider has reviewed the documentation as recorded by the Scribe Marian Zimmerman All medical record entries made by the Phillibabelardo were at my direction and personally dictated by me. I have reviewed the chart and agree that the record accurately reflects my personal performance of the history, physical exam, medical decision making, and the department course for this patient. I have also personally directed, reviewed, and agree with the discharge instructions and disposition.
[2017-05-30 01:38] LABS: BASO # 0.1 K/uL (0.0-0.2); EOS # 0.4 K/uL (0.0-0.7); EOS % 6.3 % (0.0-4.0); HEMOGLOBIN 10.8 g/dL (11.0-16.0); LYMPH # 2.1 K/uL (1.0-4.3); LYMPH % 34.3 % (20.0-40.0); MEAN CELL VOLUME 84.5 fL (81.0-99.0); MEAN CORPUSCULAR HEMOGLOBIN 27.8 pg (27.0-31.0); MEAN CORPUSCULAR HGB CONC 32.9 g/dL (33.0-37.0); MEAN PLATELET VOLUME 7.7 fL (7.2-11.7); MONO # 0.9 K/uL (0.0-0.8); MONO % 14.2 % (0.0-10.0); NEUT # 2.7 K/uL (1.8-7.0); NEUT % 44.2 % (50.0-75.0); RBC 3.9 Mil/uL (3.80-5.20); RED CELL DISTRIBUTION WIDTH 13.8 % (11.5-14.5)
[2017-05-30 01:48] LABS: ALBUMIN 3.6 g/dL (3.5-5.0)
[2017-05-30 01:51] LABS: ALB/GLOB RATIO 0.9 (1.0-2.1)
[2017-05-30 01:52] LABS: CALCIUM 10.9 mg/dl (8.6-10.4)
--- NOTE | 2017-05-30 02:45 | CT ---
EXAM: CT Head Without Intravenous Contrast CLINICAL HISTORY: 67 years old, female; Pain; Headache; Patient HX: 6-30-17 TECHNIQUE: Axial computed tomography images of the head/brain without intravenous contrast. This CT exam was performed using one or more of the following dose reduction techniques: automated exposure control, adjustment of the mA and/or kV according to patient size, and/or use of iterative reconstruction technique. EXAM DATE/TIME: 05/30/2017 1:21 AM COMPARISON: CT - HEAD W/O CONTRAST 02/14/2016 5:21:15 PM FINDINGS: There is atrophy. There is chronic small vessel ischemic disease. There is no hemorrhage or edema. No significant fluid in the sinuses. Again seen are numerous lytic lesions throughout the calvarium including lesions of the clivus, sphenoid wings,mastoids concerning for metastatic disease or multiple myeloma. The lesions are more prominent than prior study of January 2016 however please note that this is not the most recent study. There is increased density in the extra-axial space adjacent to the lytic lesion in the lateral left sphenoid wing raising the possibility of epidural extension as discussed in prior report that could be better evaluated with contrast MRI if not already performed. Ideally, direct correlation with the images would be performed to determine whether this represents a change. IMPRESSION: Numerous lytic lesions throughout the calvarium, a finding documented in multiple prior CT scans. Increased density in the extra-axial space adjacent to the lytic lesion in the lateral left sphenoid wing raising the possibility of epidural extension as discussed in the prior report that could be better evaluated with contrast MRI if not already performed. Ideally, direct correlation with the images would be performed to determine whether this represents a change.
--- NOTE | 2017-05-30 03:40 | CP.PCM.HP ---
History of Present Illness - History of Present Illness History of Present Illness: Medicine Note for Dr. Gracia CC: AMS HPI: 67F with PMHx of Multiple Myeloma, Sarcoidosis?? DM, HTN, HLD, DM neuropathy, and dementia presents to the ED due to AMS. As per Daughter, patient has a history of falls, hallucinating, and AMS. She was seen in the ED several times for multiple falls. However, today the patient was unable to identify her daughter or granddaughter. Daughter is concerned her disease is progressing and so she brought her in. Patient reports denied any fever, chills , headache, sob, chest pain, abdominal pain, n/v/d/c, or urinary symptoms. PMHx: Multiple Myeloma, Sarcoidosis?? DM, HTN, HLD, DM neuropathy, and dementia PSHx: Hysterectomy and b/l oopherectomy for cysts Meds: As per JAN All: NKDA SHx: Denied x 3 FHx: Unremarkable Present on Admission - Present on Admission Any Indicators Present on Admission: No Past Patient History - Infectious Disease Hx of Infectious Diseases: None - Past Medical History & Family History Past Medical History?: Yes - Past Social History Smoking Status: Never Smoked - CARDIAC Hx Hypercholesterolemia: Yes Hx Hypertension: Yes - PULMONARY Hx Respiratory Disorders: Yes (lung nodules) Other/Comment: sarcoidosis - NEUROLOGICAL Other/Comment: Brain Cancer, not confirmed - HEENT Hx HEENT Problems: No - RENAL Hx Chronic Kidney Disease: Yes - ENDOCRINE/METABOLIC Hx Endocrine Disorders: Yes Hx Diabetes Mellitus Type 2: Yes - HEMATOLOGICAL/ONCOLOGICAL Hx Blood Disorders: Yes Hx Cancer: Yes Hx Metastesis: Yes - INTEGUMENTARY Hx Dermatological Problems: No - MUSCULOSKELETAL/RHEUMATOLOGICAL Hx Arthritis: Yes - GASTROINTESTINAL Hx Gastrointestinal Disorders: Yes Hx Gastroesophageal Reflux: Yes - GENITOURINARY/GYNECOLOGICAL Hx Genitourinary Disorders: No - PSYCHIATRIC Hx Substance Use: No - SURGICAL HISTORY Hx Surgeries: Yes Hx Hysterectomy: Yes (bilat oophorectomy) - ANESTHESIA Hx Anesthesia: Yes Hx Anesthesia Reactions: Yes (palpitations) Hx Malignant Hyperthermia: No Meds Allergies/Adverse Reactions: Allergies Allergy/AdvReac Type Severity Reaction Status Date / Time No Known Allergies Allergy Verified 05/30/17 01:20 Physical Exam - Constitutional Appears: No Acute Distress - Head Exam Head Exam: NORMAL INSPECTION, NORMOCEPHALIC - Eye Exam Eye Exam: EOMI, Normal appearance, PERRL Pupil Exam: NORMAL ACCOMODATION - ENT Exam ENT Exam: Mucous Membranes Dry - Respiratory Exam Respiratory Exam: Clear to Auscultation Bilateral, NORMAL BREATHING PATTERN. absent: Wheezes - Cardiovascular Exam Cardiovascular Exam: REGULAR RHYTHM, RRR - GI/Abdominal Exam GI & Abdominal Exam: Normal Bowel Sounds, Soft - Rectal Exam Rectal Exam: Deferred - Extremities Exam Extremities exam: Positive for: normal inspection, pedal pulses present. Negative for: pedal edema, tenderness - Neurological Exam Neurological exam: Alert, CN II-XII Intact, Oriented x3 - Psychiatric Exam Psychiatric exam: Normal Affect, Normal Mood - Skin Skin Exam: Dry, Intact, Normal Color, Warm Results - Vital Signs Recent Vital Signs: Last Vital Signs Temp 98.3 F 05/30/17 01:20 Pulse 88 05/30/17 01:20 Resp 18 05/30/17 01:20 BP 128/84 05/30/17 01:20 Pulse Ox 97 05/30/17 03:31 - Labs Result Diagrams: 05/30/17 01:35 05/30/17 01:35 Labs: Laboratory Results - last 24 hr 05/30/17 05/30/17 01:35 01:35 WBC 6.0 RBC 3.90 Hgb 10.8 L Hct 33.0 L MCV 84.5 MCH 27.8 MCHC 32.9 L RDW 13.8 Plt Count 222 MPV 7.7 Neut % (Auto) 44.2 L Lymph % (Auto) 34.3 Jenkins % (Auto) 14.2 H Eos % (Auto) 6.3 H Baso % (Auto) 1.0 Neut # 2.7 Lymph # 2.1 Jenkins # 0.9 H Eos # 0.4 Baso # 0.1 Sodium 137 Potassium 3.9 Chloride 102 Carbon Dioxide 23 Anion Gap 16 BUN 24 H Creatinine 1.8 H Est GFR ( Amer) 34 Est GFR (Non-Af Amer) 28 Random Glucose 103 Calcium 10.9 H Total Bilirubin 0.6 AST 18 ALT 27 Alkaline Phosphatase 105 Total Protein 7.5 Albumin 3.6 Globulin 4.0 H Albumin/Globulin Ratio 0.9 L Assessment & Plan - Assessment and Plan (Free Text) Assessment: 67F with PMHx of Multiple Myeloma, Sarcoidosis?? DM, HTN, HLD, DM neuropathy, and dementia presents to the ED due to AMS. Plan: AMS * HEAD CT (05/30/17): Numerous lytic lesions throughout the calvarium, a finding documented in multiple prior CT scans. Increased density in the extra-axial space adjacent to the lytic lesion in the lateral left sphenoid wing raising the possibility of epidural extension as discussed in the prior report that could be better evaluated with contrast MRI if not already performed. Ideally, direct correlation with the images would be performed to determine whether this represents a change. Renal Insuffiency * Baseline BUN/CRE: 13/1.1 * BUN/CRE on admission: 24/ 1.8 * NS @ 100cc/hr Multiple Myeloma * Bone Density Survey (2016): Multiple abnormal foci of increased uptake in the calvarium consistent with findings on recent plain film radiographs/CT scan head. No additional suspicious abnormalities * Brain MRI (2016): Numerous well-circumscribed calvarial lesions demonstrating increased signal on the diffusion-weighted sequence. Differential diagnosis includes metastases and multiple myeloma. No acute infarction, mass or mass effect. Mild to moderate white matter microvascular ischemic change. * Abdomen and Pelvis w/ PO contrast (02/2017): Small foci of air identified adjacent to the urinary bladder within the left anterior pelvis. Question whether 1 or 2 of the foci of air reside within the urinary bladder wall raising concern for emphysematous cystitis, however the majority of air foci appear external to the urinary bladder. Correlate clinically for recent surgery. This would be an unusual location for air to reside in the setting of a perforated viscus. Correlate if patient's clinical status. If indicated, suggest 24 hour follow-up CT reimaging through the pelvis. Air within the urinary bladder; correlate clinically for recent instrumentation. Recommend correlation with urinalysis in order to assess for infection. Urinary bladder is distended. Prominent troy hepatis and mesenteric (particularly near the pancreatic head/ uncinate process) lymph nodes.Extensive osseous metastatic disease. HTN * Resume home medication: Cozaar 50mg PO daily DM * Accuchecks * ISS-low * F/U HBGA1C HLD * Crestor 10mg PO QHS * F/U lipid panel Hx of Anemia * Monitor Prophylactic Measures * GI PPX: Protonix 40mg PO daily * DVT PPX: Lovenox 40mg SC daily, SCDs DW Teresita López DO, PGY-1
[2017-05-30] MEDS: Sodium Chloride 0.9% 1,000 ML IV SCH ×2 (04:46→17:33)
[2017-05-30 05:17] LABS: HDL CHOLESTEROL 29 mg/dL (30-70)
[2017-05-30 05:28] LABS: LDL CHOLESTEROL 92 mg/dL (0-129)
--- NOTE | 2017-05-30 08:03 | RAD ---
HISTORY: acute confusion COMPARISON: 02/16/2017 FINDINGS: LUNGS: No active pulmonary disease. PLEURA: No significant pleural effusion identified, no pneumothorax apparent. CARDIOVASCULAR: Possible mild left ventricular enlargement -unchanged appearance OSSEOUS STRUCTURES: Thoracic spondylosis VISUALIZED UPPER ABDOMEN: Normal. OTHER FINDINGS: None. IMPRESSION: No interval pathology
[2017-05-30 08:15] LABS: SQUAMOUS EPITHIAL < 1 /hpf (0-5); URINE BACTERIA RARE (<OCC); URINE BILIRUBIN NEGATIVE (NEGATIVE); URINE BLOOD 1+ (NEGATIVE); URINE CLARITY Hazy (Clear); URINE COLOR Yellow (YELLOW); URINE GLUCOSE (UA) NORMAL (Normal); URINE LEUKOCYTE ESTERASE 3+ Leu/uL (Negative); URINE NITRATE NEGATIVE (NEGATIVE); URINE PROTEIN NEGATIVE (NEGATIVE); URINE UROBILINOGEN NORMAL mg/dL (0.2-1.0)
[2017-05-30] MEDS: (Novolin R) Insulin Human Regular 100 units/ml vial SC SCH ×4 (08:43→22:02)
--- NOTE | 2017-05-30 09:35 | CP.PCM.PN ---
<Funmi Lozano - Last Filed: 05/30/17 18:22> Subjective - Date & Time of Evaluation Date of Evaluation: 05/30/17 Time of Evaluation: 07:20 - Subjective Subjective: PGY1- Medicine Note- Dr. Gracia's Service Patient was seen today sitting up comfortably at bedside in no acute distress. Patient is unsure of why she is in the hospital, but glad she is being taken care of. Able to move to commode to urinate; has not had a BM since admission. Patient denies headache, dizziness, change in vision, tinnitus, neck pain, back pain, chest pain, palpitations, SOB, abdominal pain, change in appetite, muscle weakness, fatigue, sensitivity to temperature changes. About 1.5 hours later code echo called on patient because she was very confused and trying to leave. Talked to patient who was not making sense and very confused. She was very agitated and did not want anyone to touch her. She was combative and trying to get out of the bed/ room. Haldol 5 mg was given which calmed her down some and made her less aggressive, but still very confused and wants to leave. Objective - Vital Signs/Intake and Output Vital Signs (last 24 hours): Temp Pulse Resp BP Pulse Ox 98.2 F 73 20 148/87 97 05/30/17 04:35 05/30/17 04:35 05/30/17 04:35 05/30/17 04:35 05/30/17 04:35 - Medications Medications: Current Medications Duloxetine HCl (Cymbalta) 60 mg PO DAILY [facility] Enoxaparin Sodium (Lovenox) 40 mg SC DAILY [facility] Ferrous Sulfate (Feosol) 325 mg PO DAILY [facility] Gabapentin (Neurontin) 400 mg PO TID [facility] Sodium Chloride (Sodium Chloride 0.9%) 1,000 mls @ 100 mls/hr IV .Q10H ONE Stop: 05/30/17 11:21 Last Admin: 05/30/17 05:15 Dose: Not Given Sodium Chloride (Sodium Chloride 0.9%) 1,000 mls @ 100 mls/hr IV .Q10H [facility] Last Admin: 05/30/17 04:46 Dose: 100 mls/hr Ceftriaxone Sodium 1 gm/ (Sodium Chloride) 100 mls @ 100 mls/hr IVPB DAILY [facility] Insulin Human Regular (Novolin R) 0 unit SC ACHS [facility] PRN Reason: Protocol Last Admin: 05/30/17 08:43 Dose: Not Given Losartan Potassium (Cozaar) 50 mg PO DAILY [facility] Ondansetron HCl (Zofran Inj) 4 mg IVP Q6 PRN PRN Reason: Nausea/Vomiting Pantoprazole Sodium (Protonix Ec Tab) 40 mg PO DAILY [facility] Rosuvastatin Calcium (Crestor) 10 mg PO HS [facility] - Constitutional Appears: Non-toxic, In Acute Distress, Agitated, Confused - Eye Exam Eye Exam: EOMI, Normal appearance, PERRL - ENT Exam ENT Exam: Mucous Membranes Moist, Normal Exam - Neck Exam Neck Exam: Full ROM, Normal Inspection. absent: Lymphadenopathy - Respiratory Exam Respiratory Exam: Clear to Ausculation Bilateral, NORMAL BREATHING PATTERN. absent: Rales, Rhonchi, Wheezes, Respiratory Distress, Stridor - Cardiovascular Exam Cardiovascular Exam: REGULAR RHYTHM, RRR. absent: Gallop, Rubs, Murmur - GI/Abdominal Exam GI & Abdominal Exam: Soft, Normal Bowel Sounds. absent: Tenderness - Extremities Exam Extremities Exam: Full ROM, Normal Inspection. absent: Pedal Edema - Back Exam Back Exam: NORMAL INSPECTION - Neurological Exam Neurological Exam: Alert, Altered, Awake. absent: Oriented x3 - Psychiatric Exam Psychiatric exam: Agitated, Anxious - Skin Skin Exam: Intact, Normal Color, Warm Assessment and Plan - Assessment and Plan (Free Text) Assessment: AMS * HEAD CT (05/30/17): Numerous lytic lesions throughout the calvarium, a finding documented in multiple prior CT scans. Increased density in the extra-axial space adjacent to the lytic lesion in the lateral left sphenoid wing raising the possibility of epidural extension as discussed in the prior report that could be better evaluated with contrast MRI if not already performed. Ideally, direct correlation with the images would be performed to determine whether this represents a change. * f/u RPR, HIV, TSH UTI * u/a: blood 1+, leukocyte esterase 3+, wbc 45, rbc 12 * ceftriaxone 1 gm daily started on 05/30 Renal Insuffiency * Baseline BUN/CRE: 13/1.1 * BUN/CRE on admission: 24/ 1.8 * NS @ 100cc/hr Multiple Myeloma * Heme/onc consulted, Dr. Fields, help appreciated * Bone Density Survey (2016): Multiple abnormal foci of increased uptake in the calvarium consistent with findings on recent plain film radiographs/CT scan head. No additional suspicious abnormalities * Brain MRI (2016): Numerous well-circumscribed calvarial lesions demonstrating increased signal on the diffusion-weighted sequence. Differential diagnosis includes metastases and multiple myeloma. No acute infarction, mass or mass effect. Mild to moderate white matter microvascular ischemic change. * Abdomen and Pelvis w/ PO contrast (02/2017): Small foci of air identified adjacent to the urinary bladder within the left anterior pelvis. Question whether 1 or 2 of the foci of air reside within the urinary bladder wall raising concern for emphysematous cystitis, however the majority of air foci appear external to the urinary bladder. Correlate clinically for recent surgery. This would be an unusual location for air to reside in the setting of a perforated viscus. Correlate if patient's clinical status. If indicated, suggest 24 hour follow-up CT reimaging through the pelvis. Air within the urinary bladder; correlate clinically for recent instrumentation. Recommend correlation with urinalysis in order to assess for infection. Urinary bladder is distended. Prominent troy hepatis and mesenteric (particularly near the pancreatic head/ uncinate process) lymph nodes.Extensive osseous metastatic disease. HTN * Resume home medication: Cozaar 50mg PO daily DM * Accuchecks * ISS-low * HBGA1C- 8.9 * gabepentin decreased to 300 po TID (renally adjusted) * CmC7p-8.9 HLD * Crestor 10mg PO QHS * Cholesterol 174, Triglycerides 295, LDL 92, HDL 29 Hx of Anemia * H/H : 10.8/33 * Monitor Prophylactic Measures * GI PPX: Protonix 40mg PO daily * DVT PPX: Lovenox 30mg SC daily (renally adjusted), SCDs <Cameron Gracia Jr. - Last Filed: 06/01/17 10:26> Objective - Vital Signs/Intake and Output Vital Signs (last 24 hours): Temp Pulse Resp BP Pulse Ox 97.3 F L 110 H 20 193/95 H 97 06/01/17 08:00 06/01/17 08:00 06/01/17 08:00 06/01/17 08:00 06/01/17 08:00 Intake and Output: 06/01/17 06/01/17 06:59 18:59 Intake Total 980 500 Balance 980 500 - Medications Medications: Current Medications Duloxetine HCl (Cymbalta) 60 mg PO DAILY [facility] Last Admin: 06/01/17 09:53 Dose: 60 mg Enoxaparin Sodium (Lovenox) 30 mg SC DAILY [facility] Last Admin: 06/01/17 09:54 Dose: 30 mg Ferrous Sulfate (Feosol) 325 mg PO DAILY [facility] Last Admin: 06/01/17 09:54 Dose: 325 mg Gabapentin (Neurontin) 300 mg PO TID [facility] Last Admin: 06/01/17 09:54 Dose: 300 mg Sodium Chloride (Sodium Chloride 0.9%) 1,000 mls @ 100 mls/hr IV .Q10H [facility] Last Admin: 06/01/17 06:34 Dose: Not Given Ceftriaxone Sodium 1 gm/ (Sodium Chloride) 100 mls @ 100 mls/hr IVPB DAILY [facility] Last Admin: 06/01/17 09:57 Dose: 100 mls/hr Insulin Human Regular (Novolin R) 0 unit SC ACHS [facility] PRN Reason: Protocol Last Admin: 06/01/17 09:58 Dose: 2 unit Losartan Potassium (Cozaar) 50 mg PO DAILY [facility] Last Admin: 06/01/17 09:53 Dose: 50 mg Ondansetron HCl (Zofran Inj) 4 mg IVP Q6 PRN PRN Reason: Nausea/Vomiting Pantoprazole Sodium (Protonix Ec Tab) 40 mg PO DAILY [facility] Last Admin: 06/01/17 09:54 Dose: 40 mg Risperidone (Risperdal Tab) 0.5 mg PO BID [facility] Last Admin: 06/01/17 09:54 Dose: 0.5 mg Rosuvastatin Calcium (Crestor) 10 mg PO HS [facility] Last Admin: 05/31/17 21:20 Dose: 10 mg - Labs Labs: 05/31/17 06:16 05/31/17 06:16 Attending/Attestation - Attestation I have personally seen and examined this patient.: Yes I have fully participated in the care of the patient.: Yes I have reviewed all pertinent clinical information, including history, physical exam and plan: Yes Notes (Text): 06/01/17 10:26 Agree with resident note and findings
[2017-05-30] MEDS: Pantoprazole 40 mg EC Tab PO SCH (09:38)
[2017-05-30] MEDS ORDERED: Enoxaparin 40 mg Syringe SC SCH (10:00)
[2017-05-30] MEDS ORDERED: Pantoprazole 40 mg EC Tab PO SCH (10:00)
--- NOTE | 2017-05-30 13:19 | CP.PCM.CON ---
History of Present Illness - History of Present Illness History of Present Illness: Palliative consult Requested by Kacey KAUR Reason : Goals of care discussion Patient is a 67 yo female admitted from home when family noticed increased confusion and unsteady gait for the last few days. per patient's daughter Julia Galvin, patient had a similar episode of confusion in January/2017. At that time patient was diagnosed with UTI and treated with antibiotics. Upon this admission, CT head was significant for increased lytic lesions since the last CT and MRI was recommended. Doctor Shauna called on case. . The UA showed large amount of WBCs and RBCs. Rocephin IV started. WBC 6.0., Hb 10.8, BUN 24, Security Alarm Installer 1.8. IV hydration on board PMH: UTI, multiple myeloma, DM, arthiris Soc. Hx: , lives with daughter Fam Hx: patient's daughter denies known medical Hx Review of Systems - Review of Systems All systems: reviewed and no additional remarkable complaints except Review of Systems: Patient is chemically restrained after being physically aggressive with care takers. Per nursing, patient has been with AMS since admission and needed close safety watch. All other systems reviewed and are negative. Past Patient History - Infectious Disease Hx of Infectious Diseases: None - Past Medical History & Family History Past Medical History?: Yes - Past Social History Smoking Status: Never Smoked - CARDIAC Hx Hypercholesterolemia: Yes Hx Hypertension: Yes - PULMONARY Hx Respiratory Disorders: Yes (lung nodules) Other/Comment: sarcoidosis - NEUROLOGICAL Other/Comment: Brain Cancer, not confirmed - HEENT Hx HEENT Problems: No - RENAL Hx Chronic Kidney Disease: Yes - ENDOCRINE/METABOLIC Hx Endocrine Disorders: Yes Hx Diabetes Mellitus Type 2: Yes - HEMATOLOGICAL/ONCOLOGICAL Hx Blood Disorders: Yes Hx Cancer: Yes Hx Metastesis: Yes - INTEGUMENTARY Hx Dermatological Problems: No - MUSCULOSKELETAL/RHEUMATOLOGICAL Hx Falls: Yes - GASTROINTESTINAL Hx Gastrointestinal Disorders: Yes Hx Gastroesophageal Reflux: Yes - GENITOURINARY/GYNECOLOGICAL Hx Genitourinary Disorders: No - PSYCHIATRIC Hx Substance Use: No - SURGICAL HISTORY Hx Surgeries: Yes Hx Hysterectomy: Yes (bilat oophorectomy) - ANESTHESIA Hx Anesthesia: Yes Hx Anesthesia Reactions: Yes (palpitations) Hx Malignant Hyperthermia: No Meds Allergies/Adverse Reactions: Allergies Allergy/AdvReac Type Severity Reaction Status Date / Time No Known Allergies Allergy Verified 05/30/17 01:20 - Medications Medications: Current Medications Duloxetine HCl (Cymbalta) 60 mg PO DAILY [facility] Last Admin: 05/30/17 09:38 Dose: 60 mg Enoxaparin Sodium (Lovenox) 30 mg SC DAILY [facility] Ferrous Sulfate (Feosol) 325 mg PO DAILY [facility] Last Admin: 05/30/17 09:38 Dose: 325 mg Gabapentin (Neurontin) 300 mg PO TID [facility] Last Admin: 05/30/17 13:03 Dose: Not Given Sodium Chloride (Sodium Chloride 0.9%) 1,000 mls @ 100 mls/hr IV .Q10H [facility] Last Admin: 05/30/17 04:46 Dose: 100 mls/hr Ceftriaxone Sodium 1 gm/ (Sodium Chloride) 100 mls @ 100 mls/hr IVPB DAILY [facility] Last Admin: 05/30/17 10:04 Dose: Not Given Insulin Human Regular (Novolin R) 0 unit SC ACHS [facility] PRN Reason: Protocol Last Admin: 05/30/17 13:02 Dose: Not Given Losartan Potassium (Cozaar) 50 mg PO DAILY [facility] Last Admin: 05/30/17 09:39 Dose: 50 mg Ondansetron HCl (Zofran Inj) 4 mg IVP Q6 PRN PRN Reason: Nausea/Vomiting Pantoprazole Sodium (Protonix Ec Tab) 40 mg PO DAILY [facility] Last Admin: 05/30/17 09:38 Dose: 40 mg Rosuvastatin Calcium (Crestor) 10 mg PO [facility] Physical Exam - Constitutional Appears: No Acute Distress - Head Exam Head Exam: ATRAUMATIC, NORMAL INSPECTION, NORMOCEPHALIC - Eye Exam Eye Exam: EOMI, Normal appearance, PERRL Pupil Exam: NORMAL ACCOMODATION, PERRL - ENT Exam ENT Exam: Mucous Membranes Moist, Normal Exam - Neck Exam Neck exam: Positive for: Normal Inspection - Respiratory Exam Respiratory Exam: Clear to Auscultation Bilateral, NORMAL BREATHING PATTERN - Cardiovascular Exam Cardiovascular Exam: REGULAR RHYTHM, +S1, +S2 - GI/Abdominal Exam GI & Abdominal Exam: Normal Bowel Sounds, Soft - Rectal Exam Rectal Exam: Deferred - Extremities Exam Extremities exam: Positive for: normal capillary refill, normal inspection, pedal pulses present - Back Exam Back exam: NORMAL INSPECTION - Neurological Exam Neurological exam: Alert, Altered - Psychiatric Exam Psychiatric exam: Flat Affect - Skin Skin Exam: Dry, Intact, Normal Color, Warm Results - Vital Signs Recent Vital Signs: Last Vital Signs Temp 98 F 05/30/17 10:00 Pulse 78 05/30/17 10:00 Resp 20 05/30/17 10:00 BP 144/85 05/30/17 10:00 Pulse Ox 97 05/30/17 10:00 - Labs Result Diagrams: 05/30/17 01:35 05/30/17 01:35 Labs: Laboratory Results - last 24 hr 05/30/17 05/30/17 05/30/17 04:07 05:11 07:24 POC Glucose (mg/dL) Hemoglobin A1c 8.9 H Triglycerides 295 H D Cholesterol 174 LDL Cholesterol Direct 92 HDL Cholesterol 29 L Vitamin B12 25-OH Vitamin D Total Urine Color Yellow Urine Clarity Hazy Urine pH 6.0 Ur Specific [place] 1.005 Urine Protein Negative Urine Glucose (UA) Normal Urine Ketones Negative Urine Blood 1+ H Urine Nitrate Negative Urine Bilirubin Negative Urine Urobilinogen Normal Ur Leukocyte Esterase 3+ H Urine WBC (Auto) 45 H Urine RBC (Auto) 12 H Ur Squamous Epith Cells < 1 Urine Bacteria Rare 05/30/17 05/30/17 05/30/17 11:11 11:36 11:36 POC Glucose (mg/dL) 224 H Hemoglobin A1c Triglycerides Cholesterol LDL Cholesterol Direct HDL Cholesterol Vitamin B12 211 L 25-OH Vitamin D Total 15.0 L Urine Color Urine Clarity Urine pH Ur Specific [place] Urine Protein Urine Glucose (UA) Urine Ketones Urine Blood Urine Nitrate Urine Bilirubin Urine Urobilinogen Ur Leukocyte Esterase Urine WBC (Auto) Urine RBC (Auto) Ur Squamous Epith Cells Urine Bacteria Assessment & Plan - Assessment and Plan (Free Text) Assessment: Palliative consult Code status Full Code, no advance directive on chart, PPS 10%. Patient examined in bed sleeping, arousable to voice and touch for short duration. Patient is altered and unable to to be interviewed. Physical exam reveals no significant deficits. Earlier this morning, patient become aggressive with care takers, and Tin Cardona was called. patient is not aware of her action. Goals of care discussion took place over the phone with patient's daughter Mrs. Galvin. Per daughter's statement, patient has become dependent of care for the last year. Patient could not be left alone at home and needed assistance with basic ADLs, including feedings. Daughter noticed increased tremor to upper extremities and unsteady gait. As per daughter, patient had very similar symptoms in January of this year when diagnosed with UTI, but more pronounced this time. The daughter realizes that she will not be able to take care of her mother at home any longer due to worsening condition. She is looking at LTC placement. Recently patient's Medicaid coverage was cancelled. The daughter is asking for assistance with reinstalling the Medicaid insurance. Code status discussed. Daughter is not aware of her mother's wishes for end of life care. She would want all aggressive measures to be applied to support her mother's life in case her condition worsens, including termite renewal inspector MV support. Impression * This is a chronically ill patient with new acute onset of AMS * Family notices steady decline in patient's condition and is considering placement at LTC facility * Medicaid assistance was recently cut for the patient and the daughter is asking for assistance with new application * Patient's wishes for the end of life care are not known . Patient's daughter is requesting all aggressive measures to support life including MV Suggestion * Full Code, apply all measures to support life * Safety watch * SS to assist patient's daughter with Medicaid application if appropriate Palliative care will continue to fallow up with patient and the family for the support.
[2017-05-31] MEDS: Sodium Chloride 0.9% 1,000 ML IV SCH ×4 (00:15→21:21)
[2017-05-31 06:24] LABS: BASO # 0.1 K/uL (0.0-0.2); BASO % 0.9 % (0.0-2.0); EOS # 0.3 K/uL (0.0-0.7); EOS % 5.4 % (0.0-4.0); HEMOGLOBIN 11.1 g/dL (11.0-16.0); LYMPH # 1.6 K/uL (1.0-4.3); LYMPH % 26.2 % (20.0-40.0); MEAN CELL VOLUME 83.9 fL (81.0-99.0); MEAN CORPUSCULAR HEMOGLOBIN 28.8 pg (27.0-31.0); MEAN CORPUSCULAR HGB CONC 34.3 g/dL (33.0-37.0); MEAN PLATELET VOLUME 7.3 fL (7.2-11.7); MONO # 0.7 K/uL (0.0-0.8); MONO % 12.7 % (0.0-10.0); NEUT # 3.2 K/uL (1.8-7.0); NEUT % 54.8 % (50.0-75.0); RBC 3.86 Mil/uL (3.80-5.20); RED CELL DISTRIBUTION WIDTH 13.4 % (11.5-14.5); WHITE BLOOD COUNT 5.9 K/uL (4.8-10.8)
[2017-05-31 06:36] LABS: ALB/GLOB RATIO 0.9 (1.0-2.1); ALBUMIN 3.5 g/dL (3.5-5.0); CALCIUM 10.2 mg/dl (8.6-10.4); MAGNESIUM 1.7 mg/dL (1.6-2.3)
--- NOTE | 2017-05-31 09:07 | CP.PCM.PN ---
<Funmi Lozano - Last Filed: 05/31/17 17:48> Subjective - Date & Time of Evaluation Date of Evaluation: 05/31/17 Time of Evaluation: 07:00 - Subjective Subjective: PGY1- Medicine Note- Dr. Gracia's Service Patient seen and examined laying comfortably at bedside in no acute distress. Patient confused, unable to identify place or time. Able to move to commode with assistance. Speaks in incomplete sentences. Becomes increasingly agitated when anyone other than daughter attempts to touch her. Patient denies headache, dizziness, chest pain, palpitations, SOB, abdominal pain, muscle weakness, fatigue, n/v/c/d. 1 hour later patient became extremely agitated. Patient was yelling and trying to get out of bed. Patient was spoken to to try to calm her down but she was very confused and did not want to be talked to or examined. Haldol 3 mg IM was given. Patient calmed down some after injection. Objective - Vital Signs/Intake and Output Vital Signs (last 24 hours): Temp Pulse Resp BP Pulse Ox 98.2 F 71 20 148/81 98 05/30/17 23:56 05/30/17 23:56 05/30/17 23:56 05/30/17 23:56 05/30/17 23:56 Intake and Output: 05/31/17 05/31/17 06:59 18:59 Intake Total 1920 Balance 1920 - Medications Medications: Current Medications Duloxetine HCl (Cymbalta) 60 mg PO DAILY [facility] Last Admin: 05/30/17 09:38 Dose: 60 mg Enoxaparin Sodium (Lovenox) 30 mg SC DAILY [facility] Ferrous Sulfate (Feosol) 325 mg PO DAILY [facility] Last Admin: 05/30/17 09:38 Dose: 325 mg Gabapentin (Neurontin) 300 mg PO TID [facility] Last Admin: 05/30/17 17:31 Dose: 300 mg Sodium Chloride (Sodium Chloride 0.9%) 1,000 mls @ 100 mls/hr IV .Q10H [facility] Last Admin: 05/31/17 04:30 Dose: 100 mls/hr Ceftriaxone Sodium 1 gm/ (Sodium Chloride) 100 mls @ 100 mls/hr IVPB DAILY [facility] Last Admin: 05/30/17 10:04 Dose: Not Given Insulin Human Regular (Novolin R) 0 unit SC ACHS [facility] PRN Reason: Protocol Last Admin: 05/30/17 22:02 Dose: Not Given Losartan Potassium (Cozaar) 50 mg PO DAILY [facility] Last Admin: 05/30/17 09:39 Dose: 50 mg Ondansetron HCl (Zofran Inj) 4 mg IVP Q6 PRN PRN Reason: Nausea/Vomiting Pantoprazole Sodium (Protonix Ec Tab) 40 mg PO DAILY [facility] Last Admin: 05/30/17 09:38 Dose: 40 mg Rosuvastatin Calcium (Crestor) 10 mg PO HS [facility] Last Admin: 05/30/17 22:01 Dose: 10 mg - Labs Labs: 05/31/17 06:16 05/31/17 06:16 - Constitutional Appears: Well, Non-toxic, Agitated, Confused - Eye Exam Eye Exam: EOMI, Normal appearance, PERRL - ENT Exam ENT Exam: Mucous Membranes Moist, Normal Exam - Neck Exam Neck Exam: Full ROM, Normal Inspection. absent: Lymphadenopathy - Respiratory Exam Respiratory Exam: Clear to Ausculation Bilateral, NORMAL BREATHING PATTERN. absent: Rales, Rhonchi, Wheezes, Respiratory Distress, Stridor - Cardiovascular Exam Cardiovascular Exam: REGULAR RHYTHM, RRR. absent: Gallop, Rubs, Murmur - GI/Abdominal Exam GI & Abdominal Exam: Soft, Normal Bowel Sounds. absent: Distended, Firm, Guarding, Rigid, Tenderness - Extremities Exam Extremities Exam: Full ROM. absent: Pedal Edema - Back Exam Back Exam: NORMAL INSPECTION - Neurological Exam Neurological Exam: Alert, Altered, Awake. absent: Oriented x3 - Psychiatric Exam Psychiatric exam: Agitated - Skin Skin Exam: Intact, Normal Color, Warm Assessment and Plan - Assessment and Plan (Free Text) Assessment: Assessment: AMS * HEAD CT (05/30/17): Numerous lytic lesions throughout the calvarium, a finding documented in multiple prior CT scans. Increased density in the extra-axial space adjacent to the lytic lesion in the lateral left sphenoid wing raising the possibility of epidural extension as discussed in the prior report that could be better evaluated with contrast MRI if not already performed. Ideally, direct correlation with the images would be performed to determine whether this represents a change. * f/u RPR * TSH:3.45, B12: 211, Vit D: 15, * HIV negative * Risperdal .5 mg po BID (started 05/31/17) UTI * u/a: blood 1+, leukocyte esterase 3+, wbc 45, rbc 12 * ceftriaxone 1 gm daily started on 05/30 Renal Insuffiency * Baseline BUN/CRE: 13/1.1 * BUN/CRE on admission: 24/ 1.8 * NS @ 100cc/hr Multiple Myeloma * Heme/onc consulted, Dr. Fields, help appreciated * Dr. Fields saw patient and will follow up outpatient * Bone Density Survey (2016): Multiple abnormal foci of increased uptake in the calvarium consistent with findings on recent plain film radiographs/CT scan head. No additional suspicious abnormalities * Brain MRI (2016): Numerous well-circumscribed calvarial lesions demonstrating increased signal on the diffusion-weighted sequence. Differential diagnosis includes metastases and multiple myeloma. No acute infarction, mass or mass effect. Mild to moderate white matter microvascular ischemic change. * Abdomen and Pelvis w/ PO contrast (02/2017): Small foci of air identified adjacent to the urinary bladder within the left anterior pelvis. Question whether 1 or 2 of the foci of air reside within the urinary bladder wall raising concern for emphysematous cystitis, however the majority of air foci appear external to the urinary bladder. Correlate clinically for recent surgery. This would be an unusual location for air to reside in the setting of a perforated viscus. Correlate if patient's clinical status. If indicated, suggest 24 hour follow-up CT reimaging through the pelvis. Air within the urinary bladder; correlate clinically for recent instrumentation. Recommend correlation with urinalysis in order to assess for infection. Urinary bladder is distended. Prominent troy hepatis and mesenteric (particularly near the pancreatic head/ uncinate process) lymph nodes.Extensive osseous metastatic disease. HTN * Resume home medication: Cozaar 50mg PO daily DM * Accuchecks * ISS-low * HBGA1C- 8.9 * gabepentin decreased to 300 po TID (renally adjusted) HLD * Crestor 10mg PO QHS * Cholesterol 174, Triglycerides 295, LDL 92, HDL 29 Hx of Anemia * H/H : 11.1/32.4 * Monitor Prophylactic Measures * GI PPX: Protonix 40mg PO daily * DVT PPX: Lovenox 30mg SC daily (renally adjusted), SCDs <Cameron Gracia Jr. - Last Filed: 06/01/17 10:29> Objective - Vital Signs/Intake and Output Vital Signs (last 24 hours): Temp Pulse Resp BP Pulse Ox 97.3 F L 110 H 20 193/95 H 97 06/01/17 08:00 06/01/17 08:00 06/01/17 08:00 06/01/17 08:00 06/01/17 08:00 Intake and Output: 06/01/17 06/01/17 06:59 18:59 Intake Total 980 500 Balance 980 500 - Medications Medications: Current Medications Duloxetine HCl (Cymbalta) 60 mg PO DAILY [facility] Last Admin: 06/01/17 09:53 Dose: 60 mg Enoxaparin Sodium (Lovenox) 30 mg SC DAILY [facility] Last Admin: 06/01/17 09:54 Dose: 30 mg Ferrous Sulfate (Feosol) 325 mg PO DAILY [facility] Last Admin: 06/01/17 09:54 Dose: 325 mg Gabapentin (Neurontin) 300 mg PO TID [facility] Last Admin: 06/01/17 09:54 Dose: 300 mg Sodium Chloride (Sodium Chloride 0.9%) 1,000 mls @ 100 mls/hr IV .Q10H [facility] Last Admin: 06/01/17 06:34 Dose: Not Given Ceftriaxone Sodium 1 gm/ (Sodium Chloride) 100 mls @ 100 mls/hr IVPB DAILY [facility] Last Admin: 06/01/17 09:57 Dose: 100 mls/hr Insulin Human Regular (Novolin R) 0 unit SC ACHS [facility] PRN Reason: Protocol Last Admin: 06/01/17 09:58 Dose: 2 unit Losartan Potassium (Cozaar) 50 mg PO DAILY [facility] Last Admin: 06/01/17 09:53 Dose: 50 mg Ondansetron HCl (Zofran Inj) 4 mg IVP Q6 PRN PRN Reason: Nausea/Vomiting Pantoprazole Sodium (Protonix Ec Tab) 40 mg PO DAILY [facility] Last Admin: 06/01/17 09:54 Dose: 40 mg Risperidone (Risperdal Tab) 0.5 mg PO BID [facility] Last Admin: 06/01/17 09:54 Dose: 0.5 mg Rosuvastatin Calcium (Crestor) 10 mg PO HS [facility] Last Admin: 05/31/17 21:20 Dose: 10 mg - Labs Labs: 05/31/17 06:16 05/31/17 06:16 Attending/Attestation - Attestation I have personally seen and examined this patient.: Yes I have fully participated in the care of the patient.: Yes I have reviewed all pertinent clinical information, including history, physical exam and plan: Yes Notes (Text): 06/01/17 10:28 Agree with resident note and findings
[2017-05-31] MEDS: Pantoprazole 40 mg EC Tab PO SCH (09:37)
[2017-05-31] MEDS: (Novolin R) Insulin Human Regular 100 units/ml vial SC SCH ×3 (09:38→17:47)
[2017-05-31] MEDS: Enoxaparin 30 mg Syringe SC SCH (09:38)
[2017-06-01] MEDS: Sodium Chloride 0.9% 1,000 ML IV SCH ×2 (03:00→06:34)
--- NOTE | 2017-06-01 08:06 | CP.PCM.PN ---
Subjective - Date & Time of Evaluation Date of Evaluation: 06/01/17 Time of Evaluation: 09:55 - Subjective Subjective: PGY 2 Note- Dr. Gracia's service Pt seen and examined bedside. Patient altered but oriented to person. She was able to converse and answer questions about how she was feeling however distractedly while moving her blankets about in bed. She denies chest pain, headaches or pain at this time. Patient's family friend stopped by earlier concerned that patient's speech was slower than the normal. Patient was re- examined and her speech was found to be consistent with earlier evaluation. All the while patient was able to answer questions asked as well. Objective - Vital Signs/Intake and Output Vital Signs (last 24 hours): Temp Pulse Resp BP Pulse Ox 97.4 F L 91 H 20 141/82 97 06/01/17 00:05 06/01/17 00:05 06/01/17 00:05 06/01/17 00:05 06/01/17 00:05 Intake and Output: 06/01/17 06/01/17 06:59 18:59 Intake Total 980 Balance 980 - Medications Medications: Current Medications Duloxetine HCl (Cymbalta) 60 mg PO DAILY [facility] Last Admin: 05/31/17 09:38 Dose: 60 mg Enoxaparin Sodium (Lovenox) 30 mg SC DAILY [facility] Last Admin: 05/31/17 09:38 Dose: 30 mg Ferrous Sulfate (Feosol) 325 mg PO DAILY [facility] Last Admin: 05/31/17 09:37 Dose: 325 mg Gabapentin (Neurontin) 300 mg PO TID [facility] Last Admin: 05/31/17 17:46 Dose: 300 mg Sodium Chloride (Sodium Chloride 0.9%) 1,000 mls @ 100 mls/hr IV .Q10H [facility] Last Admin: 06/01/17 06:34 Dose: Not Given Ceftriaxone Sodium 1 gm/ (Sodium Chloride) 100 mls @ 100 mls/hr IVPB DAILY [facility] Last Admin: 05/31/17 19:46 Dose: 100 mls/hr Insulin Human Regular (Novolin R) 0 unit SC ACHS [facility] PRN Reason: Protocol Last Admin: 05/31/17 17:47 Dose: Not Given Losartan Potassium (Cozaar) 50 mg PO DAILY [facility] Last Admin: 05/31/17 09:37 Dose: 50 mg Ondansetron HCl (Zofran Inj) 4 mg IVP Q6 PRN PRN Reason: Nausea/Vomiting Pantoprazole Sodium (Protonix Ec Tab) 40 mg PO DAILY [facility] Last Admin: 05/31/17 09:37 Dose: 40 mg Risperidone (Risperdal Tab) 0.5 mg PO BID [facility] Last Admin: 05/31/17 19:46 Dose: 0.5 mg Rosuvastatin Calcium (Crestor) 10 mg PO HS [facility] Last Admin: 05/31/17 21:20 Dose: 10 mg - Labs Labs: 05/31/17 06:16 05/31/17 06:16 - Constitutional Appears: Non-toxic, No Acute Distress, Confused - Head Exam Head Exam: ATRAUMATIC, NORMAL INSPECTION, NORMOCEPHALIC - Eye Exam Eye Exam: EOMI, Normal appearance, PERRL Pupil Exam: NORMAL ACCOMODATION - ENT Exam ENT Exam: Mucous Membranes Moist - Neck Exam Neck Exam: Full ROM - Respiratory Exam Respiratory Exam: NORMAL BREATHING PATTERN. absent: Wheezes - Cardiovascular Exam Cardiovascular Exam: +S1, +S2 - GI/Abdominal Exam GI & Abdominal Exam: Soft, Normal Bowel Sounds - Extremities Exam Extremities Exam: Full ROM - Back Exam Back Exam: Full ROM - Neurological Exam Neurological Exam: Altered, Awake. absent: Oriented x3 Neuro motor strength exam: Left Upper Extremity: 5, Right Upper Extremity: 5, Left Lower Extremity: 5, Right Lower Extremity: 5 - Psychiatric Exam Psychiatric exam: Flat Affect - Skin Skin Exam: Dry, Normal Color, Warm Assessment and Plan - Assessment and Plan (Free Text) Assessment: AMS * HEAD CT (05/30/17): Numerous lytic lesions throughout the calvarium, a finding documented in multiple prior CT scans. Increased density in the extra-axial space adjacent to the lytic lesion in the lateral left sphenoid wing raising the possibility of epidural extension as discussed in the prior report that could be better evaluated with contrast MRI if not already performed. Ideally, direct correlation with the images would be performed to determine whether this represents a change. * RPR Nonreactive * TSH:3.45, B12: 211, Vit D: 15, * HIV negative * Risperdal .5 mg po BID (started 05/31/17). Monitor behavior. * Rule out encephalopathic etiology- F/U PT/PTT, ammonia,CMP UTI * U/A: blood 1+, leukocyte esterase 3+, wbc 45, rbc 12 * ceftriaxone 1 gm daily started on 05/30 Renal Insufficiency * Baseline BUN/CRE: 13/1.1 * BUN/CRE on admission: 24/ 1.8 * NS @ 100cc/hr - discontinue due to elevated blood pressure Multiple Myeloma * Heme/onc consulted, Dr. Fields, help appreciated * Dr. Fields saw patient and will follow up outpatient * Bone Density Survey (2016): Multiple abnormal foci of increased uptake in the calvarium consistent with findings on recent plain film radiographs/CT scan head. No additional suspicious abnormalities * Brain MRI (2016): Numerous well-circumscribed calvarial lesions demonstrating increased signal on the diffusion-weighted sequence. Differential diagnosis includes metastases and multiple myeloma. No acute infarction, mass or mass effect. Mild to moderate white matter microvascular ischemic change. * Abdomen and Pelvis w/ PO contrast (02/2017): Small foci of air identified adjacent to the urinary bladder within the left anterior pelvis. Question whether 1 or 2 of the foci of air reside within the urinary bladder wall raising concern for emphysematous cystitis, however the majority of air foci appear external to the urinary bladder. Correlate clinically for recent surgery. This would be an unusual location for air to reside in the setting of a perforated viscus. Correlate if patient's clinical status. If indicated, suggest 24 hour follow-up CT reimaging through the pelvis. Air within the urinary bladder; correlate clinically for recent instrumentation. Recommend correlation with urinalysis in order to assess for infection. Urinary bladder is distended. Prominent troy hepatis and mesenteric (particularly near the pancreatic head/ uncinate process) lymph nodes.Extensive osseous metastatic disease. HTN * Resume home medication: Cozaar 50mg PO daily [facility] * Accuchecks * ISS-low * HBGA1C- 8.9 * gabapentin decreased to 300 po TID (renally adjusted) HLD * Crestor 10mg PO QHS * Cholesterol 174, Triglycerides 295, LDL 92, HDL 29 Hx of Anemia * H/H : Stable * Monitor Prophylactic Measures * GI PPX: Protonix 40mg PO daily * DVT PPX: Lovenox 30mg SC daily (renally adjusted), SCDs
[2017-06-01] MEDS: Pantoprazole 40 mg EC Tab PO SCH (09:54)
[2017-06-01] MEDS: Enoxaparin 30 mg Syringe SC SCH (09:54)
[2017-06-01] MEDS: (Novolin R) Insulin Human Regular 100 units/ml vial SC SCH ×5 (09:58→22:01)
[2017-06-01 11:19] LABS: BASO # 0.1 K/uL (0.0-0.2); BASO % 0.7 % (0.0-2.0); EOS # 0.1 K/uL (0.0-0.7); EOS % 1.3 % (0.0-4.0); HEMOGLOBIN 12.1 g/dL (11.0-16.0); LYMPH # 1.1 K/uL (1.0-4.3); LYMPH % 15.4 % (20.0-40.0); MEAN CELL VOLUME 83.9 fL (81.0-99.0); MEAN CORPUSCULAR HEMOGLOBIN 28.4 pg (27.0-31.0); MEAN CORPUSCULAR HGB CONC 33.8 g/dL (33.0-37.0); MEAN PLATELET VOLUME 7.6 fL (7.2-11.7); MONO # 0.7 K/uL (0.0-0.8); MONO % 9.5 % (0.0-10.0); NEUT # 5.4 K/uL (1.8-7.0); NEUT % 73.1 % (50.0-75.0); RBC 4.27 Mil/uL (3.80-5.20); WHITE BLOOD COUNT 7.4 K/uL (4.8-10.8)
[2017-06-01 11:42] LABS: ALBUMIN 3.5 g/dL (3.5-5.0)
[2017-06-01 11:45] LABS: ALB/GLOB RATIO 0.9 (1.0-2.1)
[2017-06-01 11:46] LABS: CALCIUM 10.7 mg/dl (8.6-10.4); MAGNESIUM 1.7 mg/dL (1.6-2.3)
[2017-06-02 07:12] LABS: BASO # 0.1 K/uL (0.0-0.2); EOS # 0.3 K/uL (0.0-0.7); EOS % 4.1 % (0.0-4.0); HEMOGLOBIN 11.3 g/dL (11.0-16.0); LYMPH # 2.1 K/uL (1.0-4.3); LYMPH % 33.2 % (20.0-40.0); MEAN CELL VOLUME 84.1 fL (81.0-99.0); MEAN CORPUSCULAR HEMOGLOBIN 28.4 pg (27.0-31.0); MEAN CORPUSCULAR HGB CONC 33.8 g/dL (33.0-37.0); MEAN PLATELET VOLUME 7.9 fL (7.2-11.7); MONO # 0.6 K/uL (0.0-0.8); MONO % 10.4 % (0.0-10.0); NEUT # 3.2 K/uL (1.8-7.0); NEUT % 51.3 % (50.0-75.0); NRBC % 0.1 % (0.0-2.0); RED CELL DISTRIBUTION WIDTH 13.7 % (11.5-14.5); WHITE BLOOD COUNT 6.3 K/uL (4.8-10.8)
[2017-06-02 07:16] LABS: INR 1.1; PROTHROMBIN TIME 11.9 SECONDS (9.7-12.2)
[2017-06-02 07:51] LABS: ALBUMIN 3.3 g/dL (3.5-5.0)
[2017-06-02 07:54] LABS: ALB/GLOB RATIO 0.9 (1.0-2.1)
[2017-06-02 07:55] LABS: CALCIUM 10.9 mg/dl (8.6-10.4); MAGNESIUM 1.9 mg/dL (1.6-2.3)
[2017-06-02] MEDS: (Novolin R) Insulin Human Regular 100 units/ml vial SC SCH ×4 (09:30→21:47)
[2017-06-02] MEDS: Enoxaparin 30 mg Syringe SC SCH (09:57)
[2017-06-02] MEDS: Pantoprazole 40 mg EC Tab PO SCH (09:57)
--- NOTE | 2017-06-02 12:12 | CARD ---
APPROVED REPORT EKG Measurement Heart [id number] <Conclusion> Normal sinus rhythm Normal ECG
--- NOTE | 2017-06-02 12:29 | CP.PCM.PN ---
Subjective - Date & Time of Evaluation Date of Evaluation: 06/02/17 Time of Evaluation: 09:55 - Subjective Subjective: PGY 2 Note- Dr. Gracia's service Pt seen and examined bedside. Patient oriented to person only. She could not tell me where she was nor the month we are in. She is not as distracted today as she was yesterday. She denies chest pain, headaches , abdominal pain, nausea , vomiting, or visual disturbances at this time. Objective - Vital Signs/Intake and Output Vital Signs (last 24 hours): Temp Pulse Resp BP Pulse Ox 98.4 F 88 20 149/89 95 06/02/17 08:58 06/02/17 08:58 06/02/17 08:58 06/02/17 08:58 06/02/17 08:58 Intake and Output: 06/02/17 06/02/17 06:59 18:59 Intake Total 100 Balance 100 - Medications Medications: Current Medications Duloxetine HCl (Cymbalta) 60 mg PO DAILY [facility] Last Admin: 06/02/17 09:57 Dose: 60 mg Enoxaparin Sodium (Lovenox) 30 mg SC DAILY [facility] Last Admin: 06/02/17 09:57 Dose: 30 mg Ferrous Sulfate (Feosol) 325 mg PO DAILY [facility] Last Admin: 06/02/17 10:10 Dose: 325 mg Gabapentin (Neurontin) 300 mg PO TID [facility] Last Admin: 06/02/17 09:57 Dose: 300 mg Ceftriaxone Sodium 1 gm/ (Sodium Chloride) 100 mls @ 100 mls/hr IVPB DAILY [facility] Last Admin: 06/02/17 09:58 Dose: 100 mls/hr Insulin Human Regular (Novolin R) 0 unit SC ACHS [facility] PRN Reason: Protocol Last Admin: 06/02/17 09:30 Dose: 5 unit Losartan Potassium (Cozaar) 50 mg PO DAILY [facility] Last Admin: 06/02/17 09:57 Dose: 50 mg Ondansetron HCl (Zofran Inj) 4 mg IVP Q6 PRN PRN Reason: Nausea/Vomiting Pantoprazole Sodium (Protonix Ec Tab) 40 mg PO DAILY [facility] Last Admin: 06/02/17 09:57 Dose: 40 mg Risperidone (Risperdal Tab) 0.5 mg PO BID [facility] Last Admin: 06/02/17 09:57 Dose: 0.5 mg Rosuvastatin Calcium (Crestor) 10 mg PO HS [facility] Last Admin: 06/01/17 21:21 Dose: 10 mg - Labs Labs: 06/02/17 07:00 06/02/17 07:00 PT 11.9 SECONDS (9.7-12.2) 06/02/17 07:00 INR 1.1 06/02/17 07:00 APTT 29 SECONDS (21-34) 06/02/17 07:00 - Constitutional Appears: Non-toxic, No Acute Distress - Head Exam Head Exam: ATRAUMATIC, NORMAL INSPECTION, NORMOCEPHALIC - Eye Exam Eye Exam: EOMI, Normal appearance, PERRL Pupil Exam: NORMAL ACCOMODATION, PERRL - ENT Exam ENT Exam: Mucous Membranes Moist - Neck Exam Neck Exam: Full ROM - Respiratory Exam Respiratory Exam: NORMAL BREATHING PATTERN. absent: Wheezes - Cardiovascular Exam Cardiovascular Exam: +S1, +S2 - GI/Abdominal Exam GI & Abdominal Exam: Soft, Normal Bowel Sounds - Extremities Exam Extremities Exam: Full ROM, Normal Capillary Refill - Back Exam Back Exam: Full ROM - Neurological Exam Neurological Exam: Alert, Awake, Oriented x3 - Psychiatric Exam Psychiatric exam: Normal Affect, Normal Mood - Skin Skin Exam: Dry, Intact, Normal Color, Warm Assessment and Plan - Assessment and Plan (Free Text) Assessment: AMS * HEAD CT (05/30/17): Numerous lytic lesions throughout the calvarium, a finding documented in multiple prior CT scans. Increased density in the extra-axial space adjacent to the lytic lesion in the lateral left sphenoid wing raising the possibility of epidural extension as discussed in the prior report that could be better evaluated with contrast MRI if not already performed. Ideally, direct correlation with the images would be performed to determine whether this represents a change. * RPR Nonreactive * TSH:3.45, B12: 211, Vit D: 15, * HIV negative * Risperdal .5 mg po BID (started 05/31/17). Monitor behavior. * Patient likely not encephalopathic etiology- PT/PTT, ammonia,CMP within normal limits. Her presentation may be due to worsening underlying dementia. UTI * U/A: blood 1+, leukocyte esterase 3+, wbc 45, rbc 12 * ceftriaxone 1 gm daily started on 05/30 Renal Insufficiency * Baseline BUN/CRE: 30/11.1 * BUN/CRE on admission: .8 * NS @ 100cc/hr - discontinue due to elevated blood pressure Multiple Myeloma * Heme/onc consulted, Dr. Fields, help appreciated * Dr. Fields saw patient and will follow up outpatient * Bone Density Survey (2016): Multiple abnormal foci of increased uptake in the calvarium consistent with findings on recent plain film radiographs/CT scan head. No additional suspicious abnormalities * Brain MRI (2016): Numerous well-circumscribed calvarial lesions demonstrating increased signal on the diffusion-weighted sequence. Differential diagnosis includes metastases and multiple myeloma. No acute infarction, mass or mass effect. Mild to moderate white matter microvascular ischemic change. * Abdomen and Pelvis w/ PO contrast (02/2017): Small foci of air identified adjacent to the urinary bladder within the left anterior pelvis. Question whether 1 or 2 of the foci of air reside within the urinary bladder wall raising concern for emphysematous cystitis, however the majority of air foci appear external to the urinary bladder. Correlate clinically for recent surgery. This would be an unusual location for air to reside in the setting of a perforated viscus. Correlate if patient's clinical status. If indicated, suggest 24 hour follow-up CT reimaging through the pelvis. Air within the urinary bladder; correlate clinically for recent instrumentation. Recommend correlation with urinalysis in order to assess for infection. Urinary bladder is distended. Prominent troy hepatis and mesenteric (particularly near the pancreatic head/ uncinate process) lymph nodes.Extensive osseous metastatic disease. HTN * Resume home medication: Cozaar 50mg PO daily DM * Accuchecks * ISS-low * HBGA1C- 8.9 * gabapentin decreased to 300 po TID (renally adjusted) HLD * Crestor 10mg PO QHS * Cholesterol 174, Triglycerides 295, LDL 92, HDL 29 Hx of Anemia * H/H : Stable * Monitor Prophylactic Measures * GI PPX: Protonix 40mg PO daily * DVT PPX: Lovenox 30mg SC daily (renally adjusted), SCDs * PT/OT- F/U recommendations
[2017-06-03 06:55] LABS: BASO % 0.8 % (0.0-2.0); EOS # 0.4 K/uL (0.0-0.7); EOS % 7.5 % (0.0-4.0); HEMOGLOBIN 11.1 g/dL (11.0-16.0); LYMPH # 1.7 K/uL (1.0-4.3); MEAN CELL VOLUME 83.6 fL (81.0-99.0); MEAN CORPUSCULAR HEMOGLOBIN 28.3 pg (27.0-31.0); MEAN CORPUSCULAR HGB CONC 33.9 g/dL (33.0-37.0); MEAN PLATELET VOLUME 7.8 fL (7.2-11.7); MONO # 0.6 K/uL (0.0-0.8); MONO % 12.8 % (0.0-10.0); NEUT # 2.1 K/uL (1.8-7.0); NEUT % 42.9 % (50.0-75.0); NRBC % 0.1 % (0.0-2.0); RBC 3.93 Mil/uL (3.80-5.20); RED CELL DISTRIBUTION WIDTH 13.7 % (11.5-14.5); WHITE BLOOD COUNT 4.8 K/uL (4.8-10.8)
[2017-06-03 07:03] LABS: ALB/GLOB RATIO 0.9 (1.0-2.1); ALBUMIN 3.2 g/dL (3.5-5.0); CALCIUM 10.4 mg/dl (8.6-10.4); MAGNESIUM 1.8 mg/dL (1.6-2.3)
--- NOTE | 2017-06-03 07:17 | CP.PCM.PN ---
Subjective - Date & Time of Evaluation Date of Evaluation: 06/03/17 Time of Evaluation: 07:16 - Subjective Subjective: PGY-[address] Gracia Patient was seen and examined at bedside. Patient oriented to person only. Patient could not tell me where she was today or what year it currently was. Patient is in no acute distress. Patient reports that she is sleeping well and feeling okay. She cannot recall last bowel movement. Patient denies chest pain, palpitations, SOB, abdominal pain, nausea, vomiting, or constipation. Objective - Vital Signs/Intake and Output Vital Signs (last 24 hours): Temp Pulse Resp BP Pulse Ox 97.1 F L 81 16 133/69 98 06/02/17 23:25 06/02/17 23:25 06/02/17 23:25 06/02/17 23:25 06/02/17 23:25 Intake and Output: 06/03/17 06/03/17 06:59 18:59 Intake Total 300 Balance 300 - Medications Medications: Current Medications Duloxetine HCl (Cymbalta) 60 mg PO DAILY [facility] Last Admin: 06/02/17 09:57 Dose: 60 mg Enoxaparin Sodium (Lovenox) 30 mg SC DAILY [facility] Last Admin: 06/02/17 09:57 Dose: 30 mg Ferrous Sulfate (Feosol) 325 mg PO DAILY [facility] Last Admin: 06/02/17 10:10 Dose: 325 mg Gabapentin (Neurontin) 300 mg PO TID [facility] Last Admin: 06/02/17 18:05 Dose: 300 mg Ceftriaxone Sodium 1 gm/ (Sodium Chloride) 100 mls @ 100 mls/hr IVPB DAILY [facility] Last Admin: 06/02/17 09:58 Dose: 100 mls/hr Insulin Human Regular (Novolin R) 0 unit SC ACHS [facility] PRN Reason: Protocol Last Admin: 06/02/17 21:47 Dose: Not Given Losartan Potassium (Cozaar) 50 mg PO DAILY [facility] Last Admin: 06/02/17 09:57 Dose: 50 mg Ondansetron HCl (Zofran Inj) 4 mg IVP Q6 PRN PRN Reason: Nausea/Vomiting Pantoprazole Sodium (Protonix Ec Tab) 40 mg PO DAILY [facility] Last Admin: 06/02/17 09:57 Dose: 40 mg Risperidone (Risperdal Tab) 0.5 mg PO BID [facility] Last Admin: 06/02/17 18:05 Dose: 0.5 mg Rosuvastatin Calcium (Crestor) 10 mg PO HS [facility]UE Last Admin: 06/02/17 21:46 Dose: 10 mg - Labs Labs: 06/03/17 06:37 06/03/17 06:37 PT 11.9 SECONDS (9.7-12.2) 06/02/17 07:00 INR 1.1 06/02/17 07:00 APTT 29 SECONDS (21-34) 06/02/17 07:00 - Additional Findings Additional findings: - Constitutional Appears: Non-toxic, No Acute Distress - Head Exam Head Exam: ATRAUMATIC, NORMAL INSPECTION, NORMOCEPHALIC - Eye Exam Eye Exam: EOMI, Normal appearance, PERRL Pupil Exam: NORMAL ACCOMODATION, PERRL - ENT Exam ENT Exam: Mucous Membranes Moist - Neck Exam Neck Exam: Full ROM - Respiratory Exam Respiratory Exam: NORMAL BREATHING PATTERN. absent: Wheezes - Cardiovascular Exam Cardiovascular Exam: +S1, +S2 - GI/Abdominal Exam GI & Abdominal Exam: Soft, Normal Bowel Sounds - Extremities Exam Extremities Exam: Full ROM, Normal Capillary Refill - Back Exam Back Exam: Full ROM - Neurological Exam Neurological Exam: Alert, Awake, Oriented x3 - Psychiatric Exam Psychiatric exam: Normal Affect, Normal Mood - Skin Skin Exam: Dry, Intact, Normal Color, Warm Assessment and Plan - Assessment and Plan (Free Text) Plan: Disposition: Pt approved for discharge to [facility] when Bed available per Dr. Basil KOWALSKI * HEAD CT (05/30/17): Numerous lytic lesions throughout the calvarium, a finding documented in multiple prior CT scans. Increased density in the extra-axial space adjacent to the lytic lesion in the lateral left sphenoid wing raising the possibility of epidural extension as discussed in the prior report that could be better evaluated with contrast MRI if not already performed. Ideally, direct correlation with the images would be performed to determine whether this represents a change. * RPR Nonreactive * TSH:3.45, B12: 211, Vit D: 15, * HIV negative * Risperdal .5 mg po BID (started 05/31/17). Monitor behavior. * Patient likely not encephalopathic etiology- PT/PTT, ammonia,CMP within normal limits. Her presentation may be due to worsening underlying dementia. UTI * U/A: blood 1+, leukocyte esterase 3+, wbc 45, rbc 12 * ceftriaxone 1 gm daily started on 05/30 Renal Insufficiency * Baseline BUN/CRE: 13/1.1 * BUN/CRE on admission: 24/ 1.8 * NS @ 100cc/hr - discontinue due to elevated blood pressure Multiple Myeloma * Heme/onc consulted, Dr. Fields, help appreciated * Dr. Fields saw patient and will follow up outpatient * Bone Density Survey (2016): Multiple abnormal foci of increased uptake in the calvarium consistent with findings on recent plain film radiographs/CT scan head. No additional suspicious abnormalities * Brain MRI (2016): Numerous well-circumscribed calvarial lesions demonstrating increased signal on the diffusion-weighted sequence. Differential diagnosis includes metastases and multiple myeloma. No acute infarction, mass or mass effect. Mild to moderate white matter microvascular ischemic change. * Abdomen and Pelvis w/ PO contrast (02/2017): Small foci of air identified adjacent to the urinary bladder within the left anterior pelvis. Question whether 1 or 2 of the foci of air reside within the urinary bladder wall raising concern for emphysematous cystitis, however the majority of air foci appear external to the urinary bladder. Correlate clinically for recent surgery. This would be an unusual location for air to reside in the setting of a perforated viscus. Correlate if patient's clinical status. If indicated, suggest 24 hour follow-up CT reimaging through the pelvis. Air within the urinary bladder; correlate clinically for recent instrumentation. Recommend correlation with urinalysis in order to assess for infection. Urinary bladder is distended. Prominent troy hepatis and mesenteric (particularly near the pancreatic head/ uncinate process) lymph nodes.Extensive osseous metastatic disease. HTN * Resume home medication: Cozaar 50mg PO daily DM * Accuchecks * ISS-low * HBGA1C- 8.9 * gabapentin decreased to 300 po TID (renally adjusted) HLD * Crestor 10mg PO QHS * Cholesterol 174, Triglycerides 295, LDL 92, HDL 29 Hx of Anemia * H/H : Stable * Monitor Prophylactic Measures * GI PPX: Protonix 40mg PO daily * DVT PPX: Lovenox 30mg SC daily (renally adjusted), SCDs * PT/OT- F/U recommendations
[2017-06-03 08:08] VITALS: RESP 20
[2017-06-03] MEDS: (Novolin R) Insulin Human Regular 100 units/ml vial SC SCH ×4 (08:11→21:40)
[2017-06-03] MEDS: Pantoprazole 40 mg EC Tab PO SCH (10:14)
[2017-06-03] MEDS: Enoxaparin 30 mg Syringe SC SCH (10:14)
--- NOTE | 2017-06-03 16:13 | CON ---
DATE: 05/30/2017 REASON FOR CONSULT: Multiple myeloma. HISTORY OF PRESENT ILLNESS: This is a 67-year-old female with multiple medical problems who was seen by me 2 months ago in my office, at which time she was being worked up for multiple myeloma. The patient was given blood work and skeletal survey, was unable to do those tests at this time and has been readmitted for worsening mental status as well as repeated UTIs. PAST MEDICAL HISTORY: Multiple myeloma, sarcoidosis, hypertension, hyperlipidemia, and diabetes. PAST SURGICAL HISTORY: Hysterectomy and oophorectomy. MEDICATIONS: As per JAN. ALLERGIES: NKDA. SOCIAL HISTORY: Denied. No alcohol. No drug abuse. PHYSICAL EXAMINATION VITAL SIGNS: Temperature is 98.2, blood pressure is 128/84, pulse of 88, respirations 18. HEENT: Pale. No scleral icterus is seen. NECK: Supple. CHEST: Bilateral air entry is fair. CARDIOPULMONARY: S1 and S2, regular rate and rhythm. LABORATORY DATA: Show white count of 6, hemoglobin of 10.8, and platelets of 222. BUN of 24 and creatinine of 1.8. ASSESSMENT AND PLAN: A 67-year-old female with multiple medical problems, now admitted with worsening mental status. The patient still awaiting workup for multiple myeloma to determine the exact etiology of the same. Once that is obtained, further recommendations will be made as an outpatient. Case was discussed with the resident. Thank you. We will follow patient with you. Arelis Fields MD
--- NOTE | 2017-06-03 18:52 | CP.PCM.DIS ---
Provider - Provider Date of Admission: 05/30/17 03:23 Attending physician: Cameron Gracia Jr, MD Primary care physician: Dr. Mendez PMD Dr. Gracia is hospitalist Consults: Dr. Fields, Hem/Onc Time Spent in preparation of Discharge (in minutes): 45 Diagnosis - Discharge Diagnosis (1) Altered mental status Status: Chronic Comment: CT Head: as in prior CT scans, lytic lesions on skull. Pt with hx of dementia, perhaps AMS is consistent with step-watson loss of memory in dementia. With change in mood, increased aggression, hallucinations; perhaps lewy-body dementia (2) Lytic lesion of bone on x-ray Status: Chronic Comment: Hx of workup by Dr. Villatoro (former hem/onc on prior admission). Pts family reports bone marrow biposy was "inconclusive". New Hem onc is Dr. Fields who pt will f/u as OPDx. (3) Multiple myeloma Status: Chronic Comment: Hx of workup by Dr. Villatoro (former hem/onc on prior admission). Pts family reports bone marrow biposy was "inconclusive". New Hem onc is Dr. Fields who pt will f/u as OPDx. Hospital Course - Lab Results Lab Results: Most Recent Lab Values WBC 4.8 K/uL (4.8-10.8) 06/03/17 06:37 RBC 3.93 Mil/uL (3.80-5.20) 06/03/17 06:37 Hgb 11.1 g/dL (11.0-16.0) 06/03/17 06:37 Hct 32.9 % (34.0-47.0) L 06/03/17 06:37 MCV 83.6 fL (81.0-99.0) 06/03/17 06:37 MCH 28.3 pg (27.0-31.0) 06/03/17 06:37 MCHC 33.9 g/dL (33.0-37.0) 06/03/17 06:37 RDW 13.7 % (11.5-14.5) 06/03/17 06:37 Plt Count 224 K/uL (130-400) 06/03/17 06:37 MPV 7.8 fL (7.2-11.7) 06/03/17 06:37 Neut % (Auto) 42.9 % (50.0-75.0) L 06/03/17 06:37 Lymph % (Auto) 36.0 % (20.0-40.0) 06/03/17 06:37 [place] % (Auto) 12.8 % (0.0-10.0) H 06/03/17 06:37 Eos % (Auto) 7.5 % (0.0-4.0) H 06/03/17 06:37 Baso % (Auto) 0.8 % (0.0-2.0) 06/03/17 06:37 Neut # 2.1 K/uL (1.8-7.0) 06/03/17 06:37 Lymph # 1.7 K/uL (1.0-4.3) 06/03/17 06:37 [place] # 0.6 K/uL (0.0-0.8) 06/03/17 06:37 Eos # 0.4 K/uL (0.0-0.7) 06/03/17 06:37 Baso # 0.0 K/uL (0.0-0.2) 06/03/17 06:37 PT 11.9 SECONDS (9.7-12.2) 06/02/17 07:00 INR 1.1 06/02/17 07:00 APTT 29 SECONDS (21-34) 06/02/17 07:00 Sodium 136 mmol/L (132-148) 06/03/17 06:37 Potassium 3.8 mmol/L (3.6-5.2) 06/03/17 06:37 Chloride 101 mmol/L (98-107) 06/03/17 06:37 Carbon Dioxide 24 mmol/L (22-30) 06/03/17 06:37 Anion Gap 14 (10-20) 06/03/17 06:37 BUN 20 mg/dL (7-17) H 06/03/17 06:37 Creatinine 1.8 MG/DL (0.7-1.2) H 06/03/17 06:37 Est GFR ( Amer) 34 06/03/17 06:37 Est GFR (Non-Af Amer) 28 06/03/17 06:37 POC Glucose (mg/dL) 370 mg/dL (65-110) H 06/03/17 16:31 Random Glucose 284 mg/dL (65-105) H 06/03/17 06:37 Hemoglobin A1c 8.9 % (4.2-6.5) H 05/30/17 05:11 Calcium 10.4 mg/dl (8.6-10.4) 06/03/17 06:37 Phosphorus 3.3 mg/dL (2.5-4.5) 06/03/17 06:37 Magnesium 1.8 mg/dL (1.6-2.3) 06/03/17 06:37 Total Bilirubin 0.6 mg/dL (0.2-1.3) 06/03/17 06:37 AST 16 U/L (14-36) 06/03/17 06:37 ALT 24 U/L (9-52) 06/03/17 06:37 Alkaline Phosphatase 87 U/L (38-126) 06/03/17 06:37 Ammonia 19 umol/L (9-33) D 06/02/17 07:00 Total Protein 6.9 g/dL (6.3-8.3) 06/03/17 06:37 Albumin 3.2 g/dL (3.5-5.0) L 06/03/17 06:37 Globulin 3.7 gm/dL (2.2-3.9) 06/03/17 06:37 Albumin/Globulin Ratio 0.9 (1.0-2.1) L 06/03/17 06:37 Triglycerides 295 mg/dL (0-149) H D 05/30/17 04:07 Cholesterol 174 mg/dL (0-199) 05/30/17 04:07 LDL Cholesterol Direct 92 mg/dL (0-129) 05/30/17 04:07 HDL Cholesterol 29 mg/dL (30-70) L 05/30/17 04:07 Vitamin B12 211 pg/mL (239-931) L 05/30/17 11:36 25-OH Vitamin D Total 15.0 NG/ML (30.0-100.0) L 05/30/17 11:36 TSH 3rd Generation 3.45 mIU/L (0.46-4.68) 05/31/17 06:16 Urine Color Yellow (YELLOW) 05/30/17 07:24 Urine Clarity Hazy (Clear) 05/30/17 07:24 Urine pH 6.0 (5.0-8.0) 05/30/17 07:24 Ur Specific Weld 1.005 (1.003-1.030) 05/30/17 07:24 Urine Protein Negative mg/dL (NEGATIVE) 05/30/17 07:24 Urine Glucose (UA) Normal mg/dL (Normal) 05/30/17 07:24 Urine Ketones Negative mg/dL (NEGATIVE) 05/30/17 07:24 Urine Blood 1+ (NEGATIVE) H 05/30/17 07:24 Urine Nitrate Negative (NEGATIVE) 05/30/17 07:24 Urine Bilirubin Negative (NEGATIVE) 05/30/17 07:24 Urine Urobilinogen Normal mg/dL (0.2-1.0) 05/30/17 07:24 Ur Leukocyte Esterase 3+ Sho/uL (Negative) H 05/30/17 07:24 Urine WBC (Auto) 45 /hpf (0-5) H 05/30/17 07:24 Urine RBC (Auto) 12 /hpf (0-3) H 05/30/17 07:24 Ur Squamous Epith Cells < 1 /hpf (0-5) 05/30/17 07:24 Urine Bacteria Rare (<OCC) 05/30/17 07:24 RPR Nonreactive (NONREACTIVE) 05/31/17 06:16 HIV 1&2 Antibody Screen Negative (NEGATIVE) 05/31/17 06:16 - Hospital Course Hospital Course: On admission: HPI: 67F with PMHx of Multiple Myeloma, Sarcoidosis?? DM, HTN, HLD, DM neuropathy, and dementia presents to the ED due to AMS. As per Daughter, patient has a history of falls, hallucinating, and AMS. She was seen in the ED several times for multiple falls. However, today the patient was unable to identify her daughter or granddaughter. Daughter is concerned her disease is progressing and so she brought her in. Patient reports denied any fever, chills , headache, sob, chest pain, abdominal pain, n/v/d/c, or urinary symptoms. PMHx: Multiple Myeloma, Sarcoidosis?? DM, HTN, HLD, DM neuropathy, and dementia PSHx: Hysterectomy and b/l oopherectomy for cysts Meds: As per JAN All: NKDA SHx: Denied x 3 FHx: Unremarkable Hospital course: Pt admitted on 05/30/[address] head showed numerous lytic lesions throughout calvarium, as seen in multiple prior CT scans and previous MRI of brain. [facility] l[facility] throughout spine as well. Pt daughter reports outpatient workup equivocal for multiple myeloma with former hem/onc Dr. Villatoro. DR. Fields hem/onc consulted who will work the patient up as outpatient. UA on admission showed UTI, so she was started on ceftriaxone IV. Creatine above baseline on admission and improved slightly with hydration. HIV and RPR serologies negative. Over course, pt continued to have periods of aggression and was consistently only oriented to person. Pt aggression treated effectively with Risperidone. Pt treated for chronic condition of DM and HTN with home meds. Pt deemed stable for discharge to [facility] when bed available on 06/[address] Gracia - Date & Time of H&P Date of H&P: 05/30/17 Time of H&P: 03:36 Discharge Exam - Additional Findings Additional findings: - Constitutional Appears: Non-toxic, No Acute Distress - Head Exam Head Exam: ATRAUMATIC, NORMAL INSPECTION, NORMOCEPHALIC - Eye Exam Eye Exam: EOMI, Normal appearance, PERRL Pupil Exam: NORMAL ACCOMODATION, PERRL - ENT Exam ENT Exam: Mucous Membranes Moist - Neck Exam Neck Exam: Full ROM - Respiratory Exam Respiratory Exam: NORMAL BREATHING PATTERN. absent: Wheezes - Cardiovascular Exam Cardiovascular Exam: +S1, +S2 - GI/Abdominal Exam GI & Abdominal Exam: Soft, Normal Bowel Sounds - Extremities Exam Extremities Exam: Full ROM, Normal Capillary Refill - Back Exam Back Exam: Full ROM - Neurological Exam Neurological Exam: Alert, Awake, Oriented x1 (person only) - Psychiatric Exam Psychiatric exam: Normal Affect, Normal Mood - Skin Skin Exam: Dry, Intact, Normal Color, Warm Discharge Plan - Follow Up Plan Condition: STABLE Disposition: REHAB FACILITY/REHAB UNIT Additional Instructions: Patient stable for discharge per Dr. Gracia. Patient may resume the medications listed below as medical reconciliation. Patient will continue care at [facility]. Dr. Fields Hem/Onc will continue workup for multiple myeloma as outpatient. She is advised to return to the emergency department if symptoms return or worsen. These instructions were given to the pt in [place]. Patient expressed verbal understanding of these instructions. Prescribed medications to continue at [facility]: Cymbalta 60mg PO daily Feosol 325mg PO daily Neurontin 300mg PO TID Cozaar 50mg PO Daily Risperdone 0.5 mg PO BID Simvastatin 40mg PO HS Insulin sliding scale using novolin R Reglan 10m tab PO TID Vit B12 1000mcg PO daily Fosamax 70mg PO Qweekly Bentyl 20mg PO BID Referrals: Arelis Fields MD [Staff Provider] -
[2017-06-04] MEDS: (Novolin R) Insulin Human Regular 100 units/ml vial SC SCH ×3 (08:30→17:28)
[2017-06-04 08:37] LABS: BASO # 0.1 K/uL (0.0-0.2); BASO % 0.8 % (0.0-2.0); EOS # 0.3 K/uL (0.0-0.7); EOS % 5.1 % (0.0-4.0); LYMPH % 33.3 % (20.0-40.0); MEAN CELL VOLUME 83.2 fL (81.0-99.0); MEAN CORPUSCULAR HGB CONC 33.6 g/dL (33.0-37.0); MONO # 0.7 K/uL (0.0-0.8); MONO % 11.7 % (0.0-10.0); NEUT % 49.1 % (50.0-75.0); NRBC % 0.1 % (0.0-2.0); RBC 3.95 Mil/uL (3.80-5.20); RED CELL DISTRIBUTION WIDTH 13.8 % (11.5-14.5)
[2017-06-04 08:44] LABS: ALBUMIN 3.5 g/dL (3.5-5.0)
[2017-06-04 08:48] LABS: ALB/GLOB RATIO 0.9 (1.0-2.1); CALCIUM 10.7 mg/dl (8.6-10.4); MAGNESIUM 1.8 mg/dL (1.6-2.3)
[2017-06-04] MEDS: Enoxaparin 30 mg Syringe SC SCH (09:58)
[2017-06-04] MEDS: Pantoprazole 40 mg EC Tab PO SCH (09:59)
[2017-06-04] MEDS ORDERED: Potassium Chloride 20 mEq ER Tab PO ONE ×2 (12:45→14:15)
[2017-06-04 16:19] VITALS: BP 150/88; PULSE 92; TEMP 98; O2SAT 97
== END 2017-06-04 18:00 | DRG 884 ==
LOC: C.ER 00:58 → C.3T 03:23
PROVIDERS: ADMIT Internal Medicine; ATTEND Internal Medicine
DX: F03.91 Unspecified dementia, unspecified severity, with behavioral disturbance (principal); C90.00 Multiple myeloma not having achieved remission; F05 Delirium due to known physiological condition; E11.22 Type 2 diabetes mellitus with diabetic chronic kidney disease; E78.00 Pure hypercholesterolemia, unspecified; E11.40 Type 2 diabetes mellitus with diabetic neuropathy, unspecified; I12.9 Hypertensive chronic kidney disease with stage 1 through stage 4 chronic kidney disease, or unspecified chronic kidney disease; N18.9 Chronic kidney disease, unspecified; M19.90 Unspecified osteoarthritis, unspecified site; D86.9 Sarcoidosis, unspecified; R45.1 Restlessness and agitation; D64.9 Anemia, unspecified; Z79.4 Long term (current) use of insulin